=== PATIENT | female | born 1965 | race Caucasian/White ===

== ENCOUNTER 2018-09-24 10:17 | Emergency (ER) | payer SELFPAY ==
--- NOTE | 2018-09-24 11:03 | ER ---
Nurse's Notes [facility] Name: Carmel Grove Age: 53 yrs Sex: Female : 1965 Arrival Date: 09/24/2018 Time: 10:19 Bed 14 Private MD: Diagnosis: Person with feared health complaint in whom no diagnosis is made Presentation: 09/24 10:38 Presenting complaint: Patient states: felt a bug crawl into her left ear last night, iw can still feel it there. Transition of care: patient was not received from another setting of care. Onset of symptoms was September 24, 2018. Risk Assessment: Do you want to hurt yourself or someone else? Patient reports no desire to harm self or others. Initial Sepsis Screen: Does the patient meet any 2 criteria? No. Patient's initial sepsis screen is negative. Does the patient have a suspected source of infection? No. Patient's initial sepsis screen is negative. Care prior to arrival: None. 10:38 Method Of Arrival: Ambulatory iw 10:38 Acuity: NICHOLE 4 iw Historical: - Allergies: 10:44 No Known Allergies; iw - PMHx: 10:44 Anxiety; Depression; Edema to BLE; epilepsy; Hyperlipidemia; PTSD; iw - PSHx: 10:44 Appendectomy; iw - Immunization history:: Adult Immunizations not up to date. - Social history:: Smoking status: Patient uses tobacco products, smokes one-half pack cigarettes per day. - Ebola Screening: : Patient negative for fever greater than or equal to 101.5 degrees Fahrenheit, and additional compatible Ebola Virus Disease symptoms Patient denies exposure to infectious person Patient denies travel to an Ebola-affected area in the 21 days before illness onset No symptoms or risks identified at this time. Screenin:45 Abuse screen: Denies threats or abuse. Nutritional screening: No deficits noted. aa5 Tuberculosis screening: No symptoms or risk factors identified. Fall Risk None identified. Assessment: 10:45 General: Appears comfortable, Behavior is calm, cooperative. Pain: Denies pain. Neuro: aa5 Level of Consciousness is awake, alert, obeys commands, Oriented to person, place, time, situation. Cardiovascular: Patient's skin is warm and dry. Respiratory: Airway is patent Respiratory effort is even, unlabored, Respiratory pattern is regular, symmetrical. GI: No signs and/or symptoms were reported involving the gastrointestinal system. : No signs and/or symptoms were reported regarding the genitourinary system. EENT: Reports insect to left ear . Derm: Skin is pink, warm \T\ dry. Musculoskeletal: Range of motion: intact in all extremities. 11:02 Reassessment: Patient is alert, oriented x 3, equal unlabored respirations, skin aa5 warm/dry/pink. Vital Signs: 10:42 BP 117 / 76; Pulse 78; Resp 16 S; Temp 98.2; Pulse Ox 95% on R/A; Weight 69.4 kg; iw Height 5 ft. 1 in. (154.94 cm); Pain 0/10; 10:42 Body Mass Index 28.91 (69.40 kg, 154.94 cm) ED Course: 10:19 Patient arrived in ED. mr 10:31 Hernan Aceves PA is PHCP. [facility] 10:32 Calvin Hou MD is Attending Physician. [facility] 10:42 Triage completed. iw 10:42 Arm band placed on. iw 10:44 Sylwia Renner, RN is Primary Nurse. aa5 10:45 Patient has correct armband on for positive identification. Bed in low position. Call aa5 light in reach. Side rails up X 1. Adult w/ patient. 10:54 No provider procedures requiring assistance completed. Patient did not have IV access aa5 during this emergency room visit. Administered Medications: No medications were administered Outcome: 11:02 Discharge ordered by . [facility] 11:02 Patient left the ED. 11:02 Medical screen evaluation completed per provider. Patient declined treatment. aa5 11:02 Condition: stable 11:02 Discharge instructions given to patient, Instructed on discharge instructions, follow up and referral plans. Demonstrated understanding of instructions, follow-up care. Signatures: Hernan Aceves PA PA jmm Rivera, Mary Daniella Villar RN RN Sylwia Renner, RN RN aa5 Corrections: (The following items were deleted from the chart) 11:16 10:40 No provider procedures requiring assistance completed. aa5 aa5 11:16 10:40 Patient did not have IV access during this emergency room visit. aa5 aa5
--- NOTE | 2018-09-24 11:03 | EDPHYS ---
Physician Documentation [facility] Name: Carmel Grove Age: 53 yrs Sex: Female : 1965 Arrival Date: 09/24/2018 Time: 10:19 Bed 14 Private MD: ED Physician Calvin Hou HPI: 09/24 10:55 This 53 yrs old Female presents to ER via Ambulatory with complaints of jmm Foreign Body In Ear. 10:55 The patient presents with a foreign body sensation, presumably from an insect. Onset: jmm The symptoms/episode began/occurred gradually. This is a 53 year old female that presents to the ED with complaints of a foreign body sensation. Patient states an insect crawled in her left ear at 0100 today. Patient denies fever, cough, congestion. . Historical: - Allergies: 10:44 No Known Allergies; iw - PMHx: 10:44 Anxiety; Depression; Edema to BLE; epilepsy; Hyperlipidemia; PTSD; iw - PSHx: 10:44 Appendectomy; iw - Immunization history:: Adult Immunizations not up to date. - Social history:: Smoking status: Patient uses tobacco products, smokes one-half pack cigarettes per day. - Ebola Screening: : Patient negative for fever greater than or equal to 101.5 degrees Fahrenheit, and additional compatible Ebola Virus Disease symptoms Patient denies exposure to infectious person Patient denies travel to an Ebola-affected area in the 21 days before illness onset No symptoms or risks identified at this time. ROS: 10:55 Constitutional: Negative for fever, chills, and weight loss. jmm 10:55 ENT: Positive for ear pain. 11:14 All other systems are negative. jm Exam: 11:14 Constitutional: This is a well developed, well nourished patient who is awake, alert, jmm and in no acute distress. Head/Face: atraumatic. Eyes: EOMI, no conjunctival erythema appreciated 11:14 Neck: Trachea midline, Supple Chest/axilla: Normal chest wall appearance and motion. Cardiovascular: Regular rate and rhythm. No edema appreciated Respiratory: Normal respirations, no respiratory distress appreciated Abdomen/GI: Non distended, soft Back: Normal ROM Skin: General appearance color normal MS/ Extremity: Moves all extremities, no obvious deformities appreciated, no edema noted to the lower extremities Neuro: Awake and alert, normal gait Psych: Behavior is normal, Mood is normal, Patient is cooperative and pleasant 11:14 ENT: TM's: erythema, that is mild, on the left. Vital Signs: 10:42 BP 117 / 76; Pulse 78; Resp 16 S; Temp 98.2; Pulse Ox 95% on R/A; Weight 69.4 kg; iw Height 5 ft. 1 in. (154.94 cm); Pain 0/10; 10:42 Body Mass Index 28.91 (69.40 kg, 154.94 cm) iw MDM: 10:47 Patient medically screened. [facility] 11:15 Data reviewed: vital signs, nurses notes. Counseling: I had a detailed discussion with rosas the patient and/or guardian regarding: the historical points, exam findings, and any diagnostic results supporting the discharge/admit diagnosis, the need for outpatient follow up, to return to the emergency department if symptoms worsen or persist or if there are any questions or concerns that arise at home. ED course: NO FB visualized in the left tm. . Administered Medications: No medications were administered Disposition: 10:49 Otalgia. [facility] 11:27 Co-signature as Attending Physician, Calvin Hou MD I agree with the assessment and kdr plan of care. Disposition: 09/24/18 11:02 Discharged to Home as Medical Screen. Impression: Person with feared health complaint in whom no diagnosis is made. - Condition is Stable. - Follow up: Private Physician; When: 2 - 3 days; Reason: Recheck today's complaints, Continuance of care, Re-evaluation by your physician. Signatures: Calvin Hou MD MD [facility] Henran Aceves PA PA [facility] Daniella Villar, RN RN iw Corrections: (The following items were deleted from the chart) 11:02 11:02 09/24/2018 11:02 Discharged to Home as Medical Screen. Impression: Person with iw feared health complaint in whom no diagnosis is made. Condition is Stable. Forms are Medication Reconciliation Form, Thank You Letter, Antibiotic Education, Prescription Opioid Use. Follow up: Private Physician; When: 2 - 3 days; Reason: Recheck today's complaints, Continuance of care, Re-evaluation by your physician. [facility]
[2018-09-24 11:11] VITALS: BP 117/76; TEMP 98.2; O2SAT 95
--- OUTSIDE RECORDS SUMMARY | 2018-09-24 14:41 | XMS REPORT ---
:1965 Author Organization [facility] Address [address] [place] [address] Dr. Frias [address] [place] [id number] Care Team Providers Name Role Phone Unavailable Unavailable Unavailable Problems This patient has no known problems. Allergies, Adverse Reactions, Alerts This patient has no known allergies or adverse reactions. Medications This patient has no known medications.
== END 2018-09-24 11:02 | disposition home or self-care (01) ==
LOC: ER 10:17
DX: Z71.1 Person with feared health complaint in whom no diagnosis is made (principal)
CPT/HCPCS: 99281

== ENCOUNTER 2019-03-14 11:34 | Emergency (ER) | payer SELFPAY ==
--- OUTSIDE RECORDS SUMMARY | 2019-03-14 11:37 | XMS REPORT | Summary of Care ---
:1965 Author Organization [facility] - Health Address [address] [place] [address] Care Team Providers Name Role Phone Bre Richard Raina MENEZES Primary Care Provider Encounter Details Date Type Department Care Team Description 11/23/2018 Orders Only [facility] Doctor Unassigned, No [address] [facility] [place] [address] [address] [place] [address] Allergies Active Allergy Reactions Severity Noted Date Comments No Known Allergies 03/16/2005 documented as of this encounter (statuses as of 11/23/2018) Medications Medication Sig Dispensed Refills Start Date End Date Status divalproex ER Take 2 Tabs by 120 Tab 10 08/05/2013 Active (DEPAKOTE ER) 250 mg mouth every 24 hr tablet morning and evening. SERTraline (ZOLOFT) Take 1 Tab by 30 Tab 10 08/05/2013 Active 100 mg tablet mouth daily. risperidone Take 1 mg by mouth 0 Active (RISPERDAL ORAL) every morning. azithromycin 250 mg Take 1 tablet by 6 tablet 0 05/22/2018 Active tabletIndications: mouth Atypical pneumonia SEE-INSTRUCTIONS. Take 500 mg day 1, then 250 mg days 2 to 5. benzonatate 100 mg Take 1 capsule by 20 capsule 0 05/22/2018 Active capsuleIndications: mouth 3 (three) Atypical pneumonia times daily as needed for Cough. divalproex 500 mg EC Take 3 tablets by 0 Active tablet mouth every morning traZODONE 100 mg Take 100 mg by 0 Active tablet mouth at bedtime. albuterol 90 Inhale 2 Puffs 8.5 g 2 11/05/2018 Active mcg/actuation every 6 (six) inhalerIndications: hours as needed Simple chronic for Wheezing or bronchitis Shortness of Breath. furosemide (LASIX) 20 Take 1 tablet by 30 tablet 5 11/05/2018 Active mg tabletIndications: mouth daily. 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 Never 11/05/2018 How many drinks containing alcohol do you have on a typical Not asked day when you are drinking? How often do you have six or more drinks on one occasion? Not asked Sex Assigned at Date Recorded Not on file Job Start Date Occupation Industry Not on file Not on file Not on file Travel History Travel Start Travel End No recent travel history available. documented as of this encounter Last Filed Vital Signs Not on filedocumented in this encounter Plan of Treatment Health Maintenance Due Date Last Done Comments PNEUMOCOCCAL 0-64 YEARS COMBINED SERIES (1 of 3 - 07/05/1969 PCV13) DTaP,Tdap,and Td Vaccines (1 - Tdap) 07/05/1982 PAP SMEAR 07/05/1984 COLONOSCOPY 07/05/2013 Zoster Recombinant Vaccine (SHINGRIX) (1 of 2) 07/05/2013 MAMMOGRAM 05/26/2014 05/26/2013 LUNG CANCER SCREEN: Recommended for age 55-80 with 30 07/05/2018 + pack year history INFLUENZA VACCINE 12/27/2018 HEPATITIS C (HCV) SCREEN Completed 08/02/2013 documented as of this encounter Procedures Procedure Name Priority Date/Time Associated Diagnosis Comments EXTERNAL PROVIDER Routine 11/23/2018 12:01 AM CDT RECORDS documented in this encounter Results Not on filedocumented in this encounter Insurance Payer Benefit Plan / Subscriber ID Effective Phone Address Type Group Dates CR HANKINS [id number] 2018-[place] [phone] [facility] [place] [address] documented as of this encounter
--- OUTSIDE RECORDS SUMMARY | 2019-03-14 11:37 | XMS REPORT | Summary of Care ---
:1965 Author Organization [facility] Address [address] [place] [address] Care Team Providers Name Role Phone Bre Richard Primary Care Provider Reason for Visit Reason Comments Rx Concern/Question Encounter Details Date Type Department Care Team Description 11/24/2018 Telephone [facility] Bre Richard FNP Rx Concern/Question [address] [address] [place] [address] Allergies Active Allergy Reactions Severity Noted Date Comments No Known Allergies 03/16/2005 documented as of this encounter (statuses as of 11/24/2018) Medications Medication Sig Dispensed Refills Start Date [...] as of this encounter (statuses as of 11/24/2018) Active Problems Problem Noted Date 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, single episode, 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 Overview: MDD recurrent ICD10 Diagnosis Term 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 Posttraumatic stress disorder 03/16/2005 Convulsions 03/16/2005 Overview: ICD10 Diagnosis Term 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
--- OUTSIDE RECORDS SUMMARY | 2019-03-14 11:38 | XMS REPORT | Summary of Care ---
:1965 Author Organization [facility] - Health Address [address] [place] [address] Care Team Providers Name Role Phone Bre Richard Raina MENEZES Primary Care Provider Encounter Details Date Type Department Care Team Description 12/08/2018 Orders Only [facility] Doctor Unassigned, No [address] [facility] [place] [address] [address] [place] [address] Allergies Active Allergy Reactions Severity Noted Date Comments No Known Allergies 03/16/2005 documented as of this encounter (statuses as of 12/08/2018) Medications Medication Sig Dispensed Refills Start Date [...] as of this encounter (statuses as of 12/08/2018) Active Problems Problem Noted Date 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, single episode, 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 Overview: MDD recurrent ICD10 Diagnosis Term 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 Posttraumatic stress disorder 03/16/2005 Convulsions 03/16/2005 Overview: ICD10 Diagnosis Term 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 Seizures PTSD (post-traumatic stress disorder) Peripheral edema Depression Bipolar disorder with depression Anxiety documented as of this encounter (statuses as of 12/08/2018) Social History Tobacco Use Types Packs/Day Years [...] Procedure Name Priority Date/Time Associated Diagnosis Comments CONSENT/REFUSAL FOR Routine 12/08/2018 8:40 AM CDT DIAGNOSIS AND TREATMENT documented in this encounter Results Not on filedocumented in this encounter Insurance Payer Benefit Plan / Subscriber ID Effective Phone Address Type Group Dates CR [place]ANKINS [id number] 2018-[place] [phone] [facility]IMARY [facility]ARE PRIMARY CARE [address] [place] [address] documented as of this encounter
--- OUTSIDE RECORDS SUMMARY | 2019-03-14 11:38 | XMS REPORT | Summary of Care ---
:1965 Author Organization [facility] Address [address] [place] [address] Care Team Providers Name Role Phone Pcp, Patient Does Not Have A Primary Care Provider Reason for Referral Radiology Services (Routine) Status Reason Specialty Diagnoses / Referred By Referred To Procedures Contact Contact New Request Diagnostic Diagnoses Edema of both legs Shin Cummins, Radiology Procedures XR CHEST 1 VW DO [address] [place] [address] [place] [address] Radiology Services (Routine) Status Reason Specialty Diagnoses / Referred By Referred To Procedures Contact Contact New Request Diagnostic Diagnoses Edema of both legs Shin Cummins, Radiology Procedures XR CHEST 1 VW DO [address] [place] [address] [place] [id number] Reason for Visit Reason Comments Other bilateral swelling in both legs Auth/Cert Status Reason Specialty Diagnoses / Referred By Referred To Procedures Contact Contact [facility] [address] [place] [address] [place] [address] Encounter Details Date Type Department Care Team Description 12/08/2018 Emergency [facility] Shin Cummins DO Edema of both legs Department [address] [place] [address] (Primary Dx) [address] [place] [address] [place] [phone] [place] [phone] Allergies Active Allergy Reactions Severity Noted Date [...] 03/16/2005 Overview: MDD recurrent ICD10 Diagnosis Term Audit Mgr Utility Posttraumatic stress disorder 03/16/2005 Convulsions 03/16/2005 Overview: ICD10 Diagnosis Term Audit Mgr Utility Seizures PTSD (post-traumatic stress disorder) Peripheral [...] of this encounter Last Filed Vital Signs Vital Sign Reading Time Taken Comments Blood Pressure 118/74 12/08/2018 11:00 AM CDT Pulse 56 12/08/2018 11:00 AM CDT Temperature 36.7 C (98 F) 12/08/2018 8:46 AM CDT Respiratory Rate 18 12/08/2018 11:00 AM CDT Oxygen Saturation 96% 12/08/2018 11:00 AM CDT Inhaled Oxygen Concentration - - Weight 68 kg (150 lb) 12/08/2018 8:46 AM CDT Height - - Body Mass Index 25.75 11/05/2018 10:28 AM CDT documented in this encounter Discharge Instructions Shin Amor DO - 12/08/2018 INCREASE YOUR LASIX DOSE TO TWICE A DAY FOR 3 DAYS. DIAGNOSIS Diagnoses that have been ruled out: None Diagnoses that are still under consideration: None Final diagnoses: Edema of both legs NO LIFE-THREATENING FINDINGS ON TODAY'S EXAM. PROCEDURES IN THE ER TODAY: Orders Placed This Encounter Procedures XR CHEST 1 VW CBC WITH DIFF COMP. METABOLIC PANEL (75921) N-TERMINAL PRO-BNP TROPONIN I URINALYSIS CBC WITH DIFFERENTIAL MEDICATIONS ADMINISTERED IN THE ER TODAY AND DISCHARGE MEDICATIONS: Orders Placed This Encounter Medications bumetanide (BUMEX) injection 1.25 mg FOLLOW-UP RECOMMENDATIONS: RECOMMEND FOLLOW-UP WITH A PRIMARY CARE PROVIDER OR SPECIALIST IN 2-5 DAYS, ESPECIALLY IF NO IMPROVEMENT IN SYMPTOMS. MAY FOLLOW-UP WITH A PROVIDER OF YOUR CHOICE, SUCH : 1. A PHYSICIAN OF YOUR CHOICE 2. [facility] AND [facility], . LOCATIONS IN [facility] 3. [facility], [address] [place] [address]; OR, IF YOU WISH TO FOLLOW-UP WITHIN THE [facility], MAY TRY THESE OPTIONS (CLINIC APPOINTMENTS AVAILABLE ON [id number] BASIS): 1. SCHEDULE AN APPOINTMENT ONLINE AT [facility] 2. OR CALL THE [facility] ACCESS C[facility] AT OR 3. OR CALL YOUR [facility] PHYSICIAN'S OFFICE DIRECTLY IF YOU ARE ALREADY AN ESTABLISHED [facility] PATIENT. RETURN TO ER FOR WORSENING OF SYMPTOMS. AttachmentsThe following attachments cannot be sent through Care Everywhere.Leg Swelling in Both Legs (Portuguese)documented in this encounter Plan of Treatment Health [...] encounter Procedures Procedure Name Priority Date/Time Associated Comments Diagnosis XR CHEST 1 VW Routine 12/08/2018 10:02 Edema of both legs Results for this AM CDT procedure are in the results section. CBC WITH DIFFERENTIAL STAT 12/08/2018 9:45 Edema of both legs Results for this AM CDT procedure are in the results section. N-TERMINAL PRO-BNP STAT 12/08/2018 9:45 Edema of both legs Results for this AM CDT procedure are in the results section. URINALYSIS STAT 12/08/2018 9:45 Edema of both legs Results for this AM CDT procedure are in the results section. CBC WITH DIFF Routine 12/08/2018 9:45 Edema of both legs Results for this AM CDT procedure are in the results section. COMP. METABOLIC PANEL STAT 12/08/2018 9:45 Edema of both legs Results for this (19655) AM CDT procedure are in the results section. TROPONIN I STAT 12/08/2018 9:45 Edema of both legs Results for this AM CDT procedure are in the results section. documented in this encounter Results XR CHEST 1 VW (12/08/2018 10:02 AM CDT) Specimen Narrative Performed At * * * * * * * * ORIGINAL REPORT * * * * * * * * PACS/VR/DOSE EXAM: XR CHEST 1 VW HISTORY: shortness of breath COMPARISON: None. FINDINGS: The lungs may be minimally congested, but that is equivocal. They are mostly well expanded and clear. The heart and great vessels are normal. Procedure Note [facility], Radiant Results Inft User - 12/08/2018 10:14 AM CDT * * * * * * * * ORIGINAL REPORT * * * * * * * * EXAM: XR CHEST 1 VW HISTORY: shortness of breath COMPARISON: None. FINDINGS: The lungs may be minimally congested, but that is equivocal. They are mostly well expanded and clear. The heart and great vessels are normal. Performing Organization Address City/State/Zipcode Phone Number PACS/VR/DOSE CBC WITH DIFFERENTIAL (12/08/2018 9:45 AM CDT) WBC 8.19 4.30 - 11.10 [facility] 10*3/L [facility] RBC 4.21 3.93 - 5.25 [facility] 10*6/L [facility] HGB 12.9 11.6 - 15.0 g/dL [facility] HCT 38.0 35.7 - 45.2 % [facility] MCV 90.3 80.6 - 95.5 fL [facility] MCH 30.6 25.9 - 32.8 pg [facility] MCHC 33.9 31.6 - 35.1 g/dL [facility] RDW-SD 47.9 39.0 - 49.9 fL [facility] RDW-CV 14.6 12.0 - 15.5 % [facility] PLT 213 166 - 358 [facility] 10*3/L [facility] MPV 11.2 9.5 - 12.9 fL [facility] NRBC/100 WBC 0.0 0.0 - 10.0 /100 [facility] WBCs [facility] NRBC x10^3 <0.01 10*3/L [facility] GRAN MAT (NEUT) % 57.1 % [facility] IMM GRAN % 0.40 % [facility] LYMPH % 30.5 % [facility] MONO % 9.0 % [facility] EOS % 2.1 % [facility] BASO % 0.9 % [facility] GRAN MAT x10^3(ANC) 4.68 1.88 - 7.09 [facility] 10*3/uL H[facility]ITAL [facility] IMM GRAN x10^3 0.03 0.00 - 0.06 [facility] 10*3/uL [facility] LYMPH x10^3 2.50 1.32 - 3.29 [facility] 10*3/uL [facility] MONO x10^3 0.74 0.33 - 0.92 [facility] 10*3/uL [facility] EOS x10^3 0.17 0.03 - 0.39 [facility] 10*3/uL [facility] BASO x10^3 0.07 0.01 - 0.07 [facility] 10*3/uL [facility] Specimen Blood - VENOUS Performing Organization Address [facility] Phone Number [facility] CLIA: [id number], [address] [place] [address] URINALYSIS (12/08/2018 9:45 AM CDT) APPEARANCE Clear Clear [facility] COLOR Yellow Yellow [facility] PH 6.5 4.8 - 8.0 [facility] SP GRAVITY <=1.005 1.003 - 1.030 [facility] GLU U QUAL Negative Negative [facility] BLOOD Negative Negative [facility] KETONES Negative Negative [facility] PROTEIN Negative Negative [facility] UROBILIN 0.2 mg/dL 0-1.0 mg/dL [facility] BILIRUBIN Negative Negative [facility] NITRITE Negative Negative [facility] LEUK GERARDO Negative Negative [facility] RBC/HPF 1 0 - 3 HPF [facility] WBC/HPF 1 0 - 5 HPF [facility] BACTERIA Negative Negative [facility] SQ EPITH 1 HPF [facility] TRICHOMONA 1 <=1 HPF [facility] Specimen Urine - URINE, CLEAN CATCH Performing Organization Address [facility] Cent[facility]ode Phone Number [facility] CLIA: [id number], [address] [place] [address] TROPONIN I (12/08/2018 9:45 AM CDT) TROPONIN I <0.012 <=0.034 ng/mL [facility] Specimen Blood - VENOUS Narrative Performed At Equal or Less than 0.034 ng/ml---Normal [facility] Note: Cardiac troponin begins to rise 3-4 hours after the onset of ischemia. Repeat in 4-6 hours if the sample was drawn within 3-4 hours of the onset of the symptom and found normal. Between 0.035 and 0.120 ng/mL--- Borderline. Questionable myocardial injury or necrosis Note: Serial measurement may be necessary to confirm or exclude the diagnosis of myocardial injury or necrosis; Clinical correlation (symptoms, EKGs, imaging studies, and others) required; Repeat in 4-6 hours if clinically indicated. Equal or Higher than 0.121 ng/mL---Abnormal. Myocardial Injury or Necrosis Likely Biotin has been reported to cause a negative bias, interpret results relative to patient's use of biotin. Performing Organization Address [facility] Center[facility]n Phone Number [facility] CLIA: [id number], [address] [place] [address] N-TERMINAL PRO-BNP (12/08/2018 9:45 AM CDT) NT-proBNP 264 (H) <=125 pg/mL [facility] Specimen Blood - VENOUS Narrative Performed At Biotin has been reported to cause a negative [facility] bias, interpret results relative to patient's use of biotin. Performing Organization Address [facility] Center[facility]n Phone Number [facility] CLIA: [id number], [address] [place] [address] COMP. METABOLIC PANEL (47440) (12/08/2018 9:45 AM CDT) NA 138 135 - 145 mmol/L [facility] K 3.9 3.5 - 5.0 mmol/L [facility] CL 103 98 - 108 mmol/L [facility] CO2 TOTAL 25 23 - 31 mmol/L [facility] AGAP 10 2 - 16 [facility] BUN 4 (L) 7 - 23 mg/dL [facility] GLUCOSE 83 70 - 110 mg/dL [facility] CREATININE 0.55 0.50 - 1.04 [place] mg/dL HOSPITAL [facility] TOTAL BILI 0.4 0.1 - 1.1 mg/dL [facility] CALCIUM 8.9 8.6 - 10.6 mg/dL [facility] T PROTEIN 6.5 6.3 - 8.2 g/dL [facility] ALBUMIN 4.0 3.5 - 5.0 g/dL [facility] ALK PHOS 62 34 - 122 U/L [facility] ALT(SGPT) 12 9 - 51 U/L [facility] AST(SGOT) 16 13 - 40 U/L [facility] eGFR Calculation 114.8 mL/min/1.73m2 [facility] (Non-) [facility] eGFR Calculation 139.1 mL/min/1.73m2 [facility] () [facility] Specimen Blood - VENOUS Narrative Performed At Association of Glomerular Filtration Rate (GFR) [facility] and Staging of Kidney Disease* + + +- + | GFR (mL/min/1.73 m2)| With Kidney Damage|Without Kidney Damage + + +- + |>90| Stage one| Normal + + +- + |60-89|S tage two| Decreased GFR + + +- + |30-59|S tage three| Stage three + + +- + |15-29|S tage four | Stage four + + +- + |<15 (or dialysis)|Stage five | Stage five + + +- + *Each stage assumes the associated GFR level has been in effect for at least three months.Stages 1 to 5, with or without kidney disease, indicate chronic kidney disease. Notes: Determination of stages one and two (with eGFR >59mL/min/1.73 m2) requires estimation of kidney damage for at least three months as defined by structural or functional abnormalities of the kidney, manifested by either: Pathological abnormalities or Markers of kidney damage (including abnormalities in the composition of the blood or urine or abnormalities in imaging tests). Performing Organization Address City/State/Zipcode Phone Number [facility] CLIA: [id number], [address] [place] [address] [address] [employer] [address] documented in this encounter Visit Diagnoses Diagnosis Edema of both legs - Primary Edema documented in this encounter Administered Medications Medication Order MAR Action Action Date Dose Rate Site bumetanide (BUMEX) injection Given 12/08/2018 9:57 AM CDT 1.25 mg 1.25 mg 1.25 mg, Slow IV Push, Q24H, First dose on Fri12/08/18 at 1030, Until Discontinued, Routine documented in this encounter Insurance Payer Benefit Plan Subscriber ID Effective Phone Address Type / Group Dates CR CO. I [place] [id number] [address] [place] [address] I [facility] ent [address] [place] [address] GENERAL (Home) DELIVERY [phone] [place], ([place]) [place] [address] documented as of this encounter"
--- OUTSIDE RECORDS SUMMARY | 2019-03-14 11:39 | XMS REPORT ---
:1965 Author Organization [facility] Address [address] [place] [address] Dr. Frias [address] [place] [address] Care Team Providers Name Role Phone Unavailable Unavailable Unavailable Problems This patient has no known problems. Allergies, Adverse Reactions, Alerts This patient has no known allergies or adverse reactions. Medications This patient has no known medications.
--- OUTSIDE RECORDS SUMMARY | 2019-03-14 11:39 | XMS REPORT | Summary of Care ---
:1965 Author Organization [facility] Address [address] [place] [address] Care Team Providers Name Role Phone Pcp, Patient Does Not Have A Primary Care Provider Reason for Visit Reason Comments New Patient COLONOSCOPY (Routine) Status Reason Specialty Diagnoses / Procedures Referred By Referred To Contact Contact New Request Gastroenterology Diagnoses Family history of colon cancer requiring screening colonoscopy Bre Richard, Procedures CONSULT/REFERRAL GASTROENTEROLOGY CLINICAL STAFF PHARMACIST [address] [place] [address] Encounter Details Date Type Department Care Team Description 12/23/2018 Office Visit [facility] Yee Moreno Colon cancer screening ( Primary Dx); GASTROENTEROLOGY -GAVIN Enriquez Family history of colon cancer [address] [place] [phone] Allergies Active Allergy Reactions Severity Noted Date Comments No Known Allergies 03/16/2005 documented as of this encounter (statuses as of 12/23/2018) Medications Medication Sig Dispensed Refills Start Date End Date Status SERTraline Take 1 Tab by 30 Tab 10 08/05/2013 Active (ZOLOFT) 100 mg mouth daily. tablet risperidone Take 1 mg by 0 Active (RISPERDAL ORAL) mouth every morning. divalproex 500 mg Take 3 tablets 0 Active EC tablet by mouth every morning traZODONE 100 mg Take 100 mg by 0 Active tablet mouth at bedtime. albuterol 90 Inhale 2 Puffs 8.5 g 2 11/05/2018 Active mcg/actuation every 6 (six) inhalerIndications hours as needed : Simple chronic for Wheezing or bronchitis Shortness of Breath. furosemide 40 mg Take 1 tablet by 30 tablet 1 12/08/2018 Active tablet mouth daily. KCL 20 mEq Take 1 tablet by 30 tablet 1 12/08/2018 Active tabletIndications: mouth daily. Leg edema, Venous insufficiency peg-electrolyte Take as directed 4000 mL 0 12/23/2018 Active soln before [id number] colonoscopy -5.86 gram solutionIndication s: Colon cancer screening, Family history of colon cancer divalproex ER Take 2 Tabs by 120 Tab 10 08/05/2013 Discontinued (DEPAKOTE ER) 250 mouth every 9 mg 24 hr tablet morning and evening. azithromycin 250 Take 1 tablet by 6 tablet 0 05/22/2018 Discontinued mg mouth 9 tabletIndications: SEE-INSTRUCTIONS Atypical pneumonia . Take 500 mg day 1, then 250 mg days 2 to 5. benzonatate 100 mg Take 1 capsule 20 capsule 0 05/22/2018 Discontinued capsuleIndications by mouth 3 9 : Atypical (three) times pneumonia daily as needed for Cough. 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, single episode, 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 Overview: MDD recurrent ICD10 Diagnosis Term Associate Manager Affiliate Marketing Utility Posttraumatic stress disorder 03/16/2005 Convulsions 03/16/2005 Overview: ICD10 Diagnosis Term Associate Manager [employer]ili[employer] Marketing Utility Seizures PTSD (post-traumatic stress disorder) Peripheral edema Depression Bipolar disorder with depression Anxiety documented as of this encounter (statuses as of 12/23/2018) Social History Tobacco Use Types Packs/Day Years [...] Sign Reading Time Taken Comments Blood Pressure 123/81 12/23/2018 8:06 AM CDT Pulse 73 12/23/2018 8:06 AM CDT Temperature 36.1 C (97 F) 12/23/2018 8:06 AM CDT Respiratory Rate 16 12/23/2018 8:06 AM CDT Oxygen Saturation 96% 12/23/2018 8:06 AM CDT Inhaled Oxygen Concentration - - Weight 65.8 kg (145 lb 1.6 oz) 12/23/2018 8:06 AM CDT Height 154.9 cm (5' 1") 12/23/2018 8:06 AM CDT Body Mass Index 27.42 12/23/2018 8:06 AM CDT documented in this encounter Progress Yee Hobbs PA - 12/23/2018 8:00 AM CDT GI Clinic Note Date: 12/23/2018 08:25 Chief Complaint: CCS History of Present Illness: [place] is a 53 year old female with PHx of parotid cancer, anxiety, depression, bipolar disorder presents in the clinic for evaluation for CCS. She has rare intermittent rectal bleeding. No change in bowel habits No alarm features Family history of colon cancer in father dxd age late 60s-early 70s, and maternal grandfather dxd atunknown age. Never had a colonoscopy before H/o appendectomy Past Medical History: Past Medical History: Diagnosis Date Anxiety Bipolar disorder with depression Cancer of parotid gland 2013 Depression Peripheral edema Primary cancer of parotid gland 2013 PTSD (post-traumatic stress disorder) Seizures Past Surgical History: She has a past surgical history that includes parotidectomy (08/02/2013) and appendectomy (2000). Social History: Her reports that she has been smoking cigarettes. She has a 17.50 pack-year smoking history. She has never used smokeless tobacco. She reports that she drank alcohol. She reports thatshe does not use drugs., , Family History: She family history includes Cancer in her father; Coronary Heart Disease in her mother; Diabetes in her sister. Family history of colon cancer in father dxd age late 60s-early 70s, and maternal grandfather dxd at unknown age. Allergies: is allergic to none [no known allergies]. Medications: Scheduled Medications: Current Outpatient Medications Medication Sig Dispense Refill furosemide 40 mg tablet Take 1 tablet by mouth daily. 30 tablet 1 KCL 20 mEq tablet Take 1 tablet by mouth daily. 30 tablet 1 albuterol 90 mcg/actuation inhaler Inhale 2 Puffs every 6 (six) hours as needed for Wheezing or Shortness of Breath. 8.5 g 2 divalproex 500 mg EC tablet Take 3 tablets by mouth every morning risperidone (RISPERDAL ORAL) Take 1 mg by mouth every morning. SERTraline (ZOLOFT) 100 mg tablet Take 1 Tab by mouth daily. 30 Tab 10 traZODONE 100 mg tablet Take 100 mg by mouth at bedtime. No current facility-administered medications for this visit. Review of Systems: General: No recent fever or chills, no recent weight loss nor weight gain HEENT: No visual disturbances, hearing loss, tinnitus, nor vertigo CVS: No chest pain, palpitations, orthopnea, nor PND Resp: No dyspnea, asthma, chronic cough, nor hemoptysis GI: SEE HPI : No dysuria, hematuria, nor nocturia Musculoskeletal: No joint swelling, joint pain, cramping nor weakness Derm: No rash, suspicious skin lesions, skin cancer nor skin ulcers Neuro: No seizures, nor stroke Endo: No diabetes nor thyroid disease Heme: No abnormal bruising or bleeding Allergy: No urticaria, allergic rash, nor recurrent infections Psych: No depression, anxiety, nor mood swings Physical Exam: Temp: [36.1 C (97 F)] Pulse: [73] Resp: [16] BP: (123)/(81) @LASTSAO2(3)@ General: Alert, awake, calm, in no acute respiratory distress Skin: no vascular spiders, no jaundice, no vitiligo, no rash, no excoriations Head: normocephalic, atraumatic, no wasting of temporalis or masseter musculature Mouth/Throat: no bleeding from mucous membranes, no oropharyngeal ulcers Neck: supple, midline trachea, no thyromegaly, no jugular venous distension, no carotid bruits Lymph Nodes: no palpable cervical, supraclavicular, axillary, or inguinal lymphadenopathy Chest: no spinal or renal angle tenderness, no chest wall abnormality, no kyphosis or scoliosis Lungs: clear to percussion and auscultation Heart: regular rate and rhythm, normal S1 and S2, no murmur, gallop or rub Abdomen: soft, nondistended, nontender, no palpable liver or spleen, no ascites , no bruit, normal bowel sounds Musculoskeletal: no muscle tenderness or masses Extremities: no cyanosis, clubbing, edema, palmar rubor, or Dupuytren contracture Pulses: intact in upper extremities, intact in lower extremities Neurological: no asterixis or tremor Psychiatric: oriented to place, time, and person, normal affect. Labs: CBC WBC x10^3 (/uL) Date Value 07/02/2013 3.7 (L) WBC (10*3/L) Date Value 12/08/2018 8.19 RBC x10^6 (/uL) Date Value 07/02/2013 3.82 (L) RBC (10*6/L) Date Value 12/08/2018 4.21 PLT x10^3 (/uL) Date Value 07/02/2013 180 PLT (10*3/L) Date Value 12/08/2018 213 HGB Date Value 12/08/2018 12.9 g/dL 07/02/2013 11.4 G/DL (L) HCT (%) Date Value 12/08/2018 38.0 07/02/2013 34.9 (L) CMP NA Date Value 12/08/2018 138 mmol/L 04/17/2012 144 MMOL/L K Date Value 12/08/2018 3.9 mmol/L 04/17/2012 3.8 MMOL/L CALCIUM Date Value 12/08/2018 8.9 mg/dL 04/17/2012 9.1 MG/DL CL Date Value 12/08/2018 103 mmol/L 04/17/2012 101 MMOL/L BUN Date Value 12/08/2018 4 mg/dL (L) 04/17/2012 6 MG/DL (L) CREATININE Date Value 12/08/2018 0.55 mg/dL 04/17/2012 0.60 MG/DL GLUCOSE Date Value 12/08/2018 83 mg/dL 04/17/2012 145 MG/DL (H) CO2 TOTAL Date Value 12/08/2018 25 mmol/L 04/17/2012 30 MMOL/L ALBUMIN Date Value 12/08/2018 4.0 g/dL 03/15/2005 3.9 G/DL T PROTEIN Date Value 12/08/2018 6.5 g/dL 03/15/2005 7.0 G/DL TOTAL BILI Date Value 12/08/2018 0.4 mg/dL 03/15/2005 0.4 MG/DL BILI UNCON (mg/dL) Date Value 12/20/2017 0.3 BILI CONJ (mg/dL) Date Value 12/20/2017 0.0 ALT(SGPT) (U/L) Date Value 12/08/2018 12 03/15/2005 34 AST(SGOT) (U/L) Date Value 12/08/2018 16 03/15/2005 14 ALK PHOS (U/L) Date Value 12/08/2018 62 03/15/2005 124 (H) Assessment and Plan: 1. Colon cancer screening (primary encounter diagnosis) 2. Family history of colon cancer - Will order colonoscopy with Golytely as prep - Discussed risks and benefits of procedure - Consent form discussed and signed F/U PRN Signed: Yee Moreno PA-C Department of Internal Medicine - Gastroenterology and Hepatology documented in this encounter Plan of Treatment Date Type Specialty Care Team Description 12/24/2018 Appointment Radiology Bre Richard, CLINICAL STAFF PHARMACIST [address] [place], [place] [address] 12/24/2018 Laboratory Only Beam Carrier Hauler Pusher, Adc Cardio Fac 1, Adc Cardio Fac Room 12/24/2018 Appointment Vascular Sonography Cindy Willams MD [address] [place] [address] [place] [address] Tech, Adc Cardio Vascular 01/05/2019 Office Visit Cardiology Cindy Willams MD [address] [place] [address] [place] [address] 02/12/2019 Office Visit Pulmonary Disease Eunice Childers DO [address] [place] [address] Health Maintenance Due Date Last Done Comments PNEUMOCOCCAL 0-64 YEARS COMBINED SERIES (1 of 3 - 07/05/1969 PCV13) DTaP,Tdap,and Td Vaccines (1 - Tdap) 07/05/1982 PAP SMEAR 07/05/1984 COLONOSCOPY 07/05/2013 Zoster Recombinant Vaccine (SHINGRIX) (1 of 2) 07/05/2013 MAMMOGRAM 05/26/2014 05/26/2013 LUNG CANCER SCREEN: Recommended for age 55-80 with 30 07/05/2018 + pack year history INFLUENZA VACCINE (#1) 2018 HEPATITIS C (HCV) SCREEN Completed 08/02/2013 documented as of this encounter Results Not on filedocumented in this encounter Visit Diagnoses Diagnosis Colon cancer screening - Primary Special screening for malignant neoplasms, colon Family history of colon cancer Family history of malignant neoplasm of gastrointestinal tract documented in this encounter Insurance Payer Benefit Plan Subscriber ID Effective Phone Address Type / Group Dates [place] [place] [id number] [address] [place] [address] [address] [place], [place] [address] General (Home) Delivery [phone] [place] (Work) [place] [id number] documented as of this encounter
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
--- OUTSIDE RECORDS SUMMARY | 2019-03-14 11:39 | XMS REPORT | Summary of Care ---
:1965 Author Organization [facility] Address [address] [place] [address] Care Team Providers Name Role Phone Bre Richard LOCKSTITCH ZIPPER SETTER Primary Care Provider Pcp, Patient Does Not Have A Primary Care Provider Reason for Referral (Routine) Status Reason Specialty Diagnoses / Referred By Referred To Procedures Contact Contact New Request Pulmonary Disease Diagnoses Simple chronic bronchitis Bre Richard, Procedures CONSULT/REFERRAL PULMONARY LOCKSTITCH ZIPPER SETTER [address] [place] [address] (Routine) Status Reason Specialty Diagnoses / Referred By Referred To Procedures Contact Contact New Request Cardiology Diagnoses Peripheral edema Bre Richard, LOCKSTITCH ZIPPER SETTER Procedures CONSULT/REFERRAL CARDIOLOGY [address] [place] [address] (Routine) Status Reason Specialty Diagnoses / Procedures Referred By Referred To Contact Contact Authorized Gastroenterology Diagnoses Family history of colon cancer requiring screening colonoscopy Bre Richard, Procedures CONSULT/REFERRAL GASTROENTEROLOGY LOCKSTITCH ZIPPER SETTER [address] [place] [address] Radiology Services (Routine) Status Reason Specialty Diagnoses / Referred By Referred To Procedures Contact Contact New Request Diagnostic Diagnoses Encounter for mammogram to establish baseline mammogram Bre Richard, Radiology Procedures BI SCREENING MAMMOGRAM BILATERAL LOCKSTITCH ZIPPER SETTER [address] [place] [address] Reason for Visit Reason Comments Establish Care Encounter Details Date Type Department Care Team Description 11/05/2018 Office Visit [facility] Bre Draper, LOCKSTITCH ZIPPER SETTER [address] [place] [address] [phone] Encounter for medical examination to establish care ( Primary Dx); [facility] Major depressive disorder, single episode, severe; Clinic Epithelial-myoepithelial carcinoma of salivary gland; [address] Peripheral edema; [place], [place] Bipolar disorder with depression; [phone] Family history of colon cancer requiring screening colonoscopy; [phone] Encounter for mammogram to establish baseline mammogram; Simple chronic bronchitis Allergies Active Allergy Reactions Severity Noted Date Comments No Known Allergies 03/16/2005 documented as of this encounter (statuses as of 12/10/2018) Medications Medication Sig Dispensed Refills Start Date End Date Status divalproex ER Take 2 Tabs by 120 Tab 10 08/05/2013 Active (DEPAKOTE ER) 250 mouth every mg 24 hr tablet morning and evening. SERTraline Take 1 Tab by 30 Tab 10 08/05/2013 Active (ZOLOFT) 100 mg mouth daily. tablet risperidone Take 1 mg by 0 Active (RISPERDAL ORAL) mouth every morning. azithromycin 250 Take 1 tablet 6 tablet 0 05/22/2018 Active mg by mouth tabletIndications: SEE-INSTRUCTION Atypical pneumonia S. Take 500 mg day 1, then 250 mg days 2 to 5. benzonatate 100 mg Take 1 capsule 20 capsule 0 05/22/2018 Active capsuleIndications by mouth 3 : Atypical (three) times pneumonia daily as needed for Cough. divalproex 500 mg Take 3 tablets 0 Active EC tablet by mouth every morning traZODONE 100 mg Take 100 mg by 0 Active tablet mouth at bedtime. albuterol 90 Inhale 2 Puffs 8.5 g 2 11/05/2018 Active mcg/actuation every 6 (six) inhalerIndications hours as needed : Simple chronic for Wheezing or bronchitis Shortness of Breath. furosemide (LASIX Take by mouth. 0 Discontinued ORAL) 9 albuterol 90 Inhale 2 Puffs 8.5 g 0 05/22/2018 Discontinued mcg/actuation every 4 (four) 9 inhalerIndications hours as needed : Atypical for Wheezing or pneumonia Shortness of Breath. furosemide (LASIX) Take 1 tablet 30 tablet 5 11/05/2018 Discontinued 20 mg by mouth daily. 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, single episode, 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 Overview: MDD recurrent ICD10 Diagnosis Term Waiter/Waitress Take Out Utility Posttraumatic stress disorder 03/16/2005 Convulsions 03/16/2005 Overview: ICD10 Diagnosis Term Waiter/Waitress Take Out Utility Seizures PTSD (post-traumatic stress disorder) Peripheral edema Depression Bipolar disorder with depression Anxiety documented as of this encounter (statuses as of 12/10/2018) Social History Tobacco Use Types Packs/Day Years Used Date Current Every Day Smoker Cigarettes 0.5 35 Smokeless Tobacco: Never Used Tobacco Cessation: Ready to Quit: No; Counseling Given: Yes Alcohol Use Drinks/Week oz/Week Comments Not Currently [...] Sign Reading Time Taken Comments Blood Pressure 107/57 11/05/2018 10:28 AM CDT Pulse 70 11/05/2018 10:28 AM CDT Temperature - - Respiratory Rate 20 11/05/2018 10:28 AM CDT Oxygen Saturation - - Inhaled Oxygen Concentration - - Weight 67.4 kg (148 lb 8 oz) 11/05/2018 10:28 AM CDT Height 162.6 cm (5' 4") 11/05/2018 10:28 AM CDT Body Mass Index 25.49 11/05/2018 10:28 AM CDT documented in this encounter Progress Notes Bre Richard, CLIF - 11/05/2018 2:00 PM CDT Chief Complaint Patient presents with Establish Care [place] is a 53 year old female being seen in clinic to establish care with [facility]. Complains of chronic bronchitis and lower extremity edema. Bronchitis episodes are 4-5 times a yr for many years. Edema and been present for last 2 yrs. Responds well to diuretics. 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 Pt has adjuvant XRT for 6 wks. No chemotherapy. Has done well since. Has history of seizure disorder that is well controlled. Last seizure in 2012. Sees [facility] psych for bipolar disorder with depression/anxiety. Last Mammogram was in 2013. Father of metastatic colon cancer at age 74. She has never had a colonoscopy. The patient smokes 1/2 ppd for 45 yrs. Patient Active Problem List Diagnosis Major depressive disorder, single episode, severe Posttraumatic stress disorder Convulsions Epithelial-myoepithelial carcinoma of salivary gland Seizures PTSD (post-traumatic stress disorder) Peripheral edema Depression Bipolar disorder with depression Anxiety Primary cancer of parotid gland ROS: Constitutional: denies chills, sweats, fever, weakness or fatigue Eyes: denies blurred vision, change in or loss of vision, eye pain or redness Ears: denies pain or hearing impairment Nose/Sinuses: denies congestion or rhinorrhea Mouth/Throat: denies sore throat or mouth pain Neck: denies pain Cardiovascular: denies chest pain or palpitations Respiratory: (+) dyspnea, dyspnea on exertion, (+) wheezing Breast: no complaints Gastrointestinal: denies nausea/vomiting/diarrhea/constipation, denies abdominal pain Genitourinary: no dysuria or hematuria Musculoskeletal: denies muscle or bone pain or functional loss Skin: denies rash or itching Neuro: denies change in sensation, any neurologic loss or change in strength Psych: (+) psychiatric issues Endocrine: denies unusual weight loss/gain, heat/cold sensitivity, polyuria or polydipsia Heme/Lymph: denies swollen glands or bruising Current Outpatient Medications on File Prior to Visit Medication Sig Dispense Refill divalproex 500 mg EC tablet Take 3 tablets by mouth every morning traZODONE 100 mg tablet Take 100 mg by mouth at bedtime. risperidone (RISPERDAL ORAL) Take 1 mg by mouth every morning. SERTraline (ZOLOFT) 100 mg tablet Take 1 Tab by mouth daily. 30 Tab 10 albuterol 90 mcg/actuation inhaler Inhale 2 Puffs every 4 (four) hours as needed for Wheezing orShortness of Breath. 8.5 g 0 azithromycin 250 mg tablet Take 1 tablet by mouth SEE-INSTRUCTIONS. Take 500 mg day 1, then 250 mg days 2 to 5. 6 tablet 0 benzonatate 100 mg capsule Take 1 capsule by mouth 3 (three) times daily as needed for Cough. 20capsule 0 furosemide (LASIX ORAL) Take by mouth. divalproex ER (DEPAKOTE ER) 250 mg 24 hr tablet Take 2 Tabs by mouth every morning and evening. 120 Tab 10 No current facility-administered medications on file prior to visit. Allergies Allergen Reactions None [No Known Allergies] Past Surgical History: Procedure Laterality Date APPENDECTOMY 2000 PAROTIDECTOMY 08/02/2013 Surgeon: Esther Treviño MD; Location: [facility] Family History Problem Relation Age of Onset Coronary Heart Disease Mother Cancer Father Diabetes Sister Social History Socioeconomic History Marital status: Spouse [...] file Gets together: Not on file Attends quaker service: Not on file Active member of [...] family violence History of bipolar disorder. 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 Skin: skin color, texture, and turgor are normal Head: normocephalic, atraumatic Eyes: anicteric sclera, pupils are equally round and reactive to light, extraocular movements are intact. Ears: external ears normal, canals clear, tympanic membranes normal. Nose: nares normal, septum midline, mucosa normal. Oropharynx: normal, clear without erythema or exudate. Neck: neck supple, no adenopathy Chest: symmetric, no deformities Lungs: lungs clear to auscultation bilaterally. no wheezing, rales or rhonchi. Heart: regular rate and rhythm, no murmurs Abdomen: abdomen soft, non-tender, nondistended, normal active bowel sounds, no masses or organomegaly. Back: nontender, symmetrical Musculoskeletal: strength intact, no atrophy appreciated Neuro: CN 2 - 12 grossly intact Extremities: no cyanosis, no edema. Assessment and Plan: 1. Encounter to establish care - Labs drawn: CBC, CMP, TSH, FREE T4, A1C, VIT D, LIPID, HIV, HCV 2. Primary cancer of parotid gland 3. Major depressive disorder, single episode, severe 4. Peripheral edema - furosemide (LASIX) 20 mg tablet; Take 1 tablet by mouth daily. Dispense: 30 tablet; Refill: 5 5. Bipolar disorder with depression Continue with [facility] Psych 6. Family history of colon cancer requiring screening colonoscopy - CONSULT/REFERRAL GASTROENTEROLOGY 7. Encounter for mammogram to establish baseline mammogram - BI SCREENING MAMMOGRAM BILATERAL; Future 8. Simple chronic bronchitis - albuterol 90 mcg/actuation inhaler; Inhale 2 Puffs every 6 (six) hours as needed for Wheezing or Shortness of Breath. Dispense: 8.5 g; Refill: 2 Appropriate plan of ca re, desired health behaviors, goals and medications discussed with patient and educational resources and self-management tools provided, as applicable. Patient/family/guardian voice understanding. Barriers to adherence: none Ability to manage care: Good As necessary, prescribed medications and potential significant medication side effects or medicationinteractions were discussed with the patient and pt will let me know if any occur. Call or return to clinic prn if these symptoms worsen or fail to improve as anticipated. Call or report to ER if symptoms should symptoms progress or worsen. The patient indicates understanding of these issues and agrees with the plan. Bre [facility] Paris Regalado LVN - 11/05/2018 2:00 PM Clint Ulises Grvoe is a 53 year old female Patient here today for establish care. Reports 0 pain on scale 0/10, MD notified. Reviewed medications and allergies with patient today. Fall Risk Assessment/Screening performed with patient today andpatient is not at risk for falls. Lab work drawn per provider orders. Needle stick x (3) attempts.. Tolerated well. Minimal bruising noted to left forearm. Pressure bandage and ice pack applied. Voice no complaint of discomfort to site. documented in this encounter Plan of Treatment Date Type Specialty Care Team Description 12/23/2018 Office Visit Gastroenterology Yee Moreno PA [address] [place] [address] [phone] 12/24/2018 Laboratory Only Inspector Paper Products, Adc Cardio Fac 1, Adc Cardio Fac Room 12/24/2018 Appointment Vascular Sonography Cindy Willams MD [address] [place] [address] [place] [id number] Margarito Askew Cardio Vascular 01/05/2019 Office Visit Cardiology Cindy Willams MD [address] [place] [address] [place] [phone] Name Type Priority Associated Diagnoses Order Schedule BI SCREENING MAMMOGRAM IMAGING Routine Encounter for mammogram Expected: , BILATERAL to establish baseline Expires: 11/06/2019 mammogram Health Maintenance Due Date Last Done Comments [...] filedocumented in this encounter Visit Diagnoses Diagnosis Encounter for medical examination to establish care - Primary Major depressive disorder, single episode, severe Major depressive disorder, single episode, severe, without mention of psychotic behavior Epithelial-myoepithelial carcinoma of salivary gland Malignant neoplasm of salivary gland, unspecified Peripheral edema Edema Bipolar disorder with depression Bipolar I disorder, most recent episode (or current) depressed, unspecified Family history of colon cancer requiring screening colonoscopy Family history of malignant neoplasm of gastrointestinal tract Encounter for mammogram to establish baseline mammogram Other screening mammogram Simple chronic bronchitis documented in this encounter Insurance Payer Benefit Plan Subscriber ID Effective Phone Address Type / Group Dates CR HANKINS [id number] 2018-Presdylan [phone] [facility] PRIMARY CARE PRIMARY CARE [address] [place] [address] [place] [id number] 2018-[place] [address] H C I H C ent [address] [place] [address] GENERAL (Home) DELIVERY [phone] [place] ([place]) [place] [address] documented as of this encounter
--- OUTSIDE RECORDS SUMMARY | 2019-03-14 11:39 | XMS REPORT | Summary of Care ---
:1965 Author Organization [facility] Address [address] [place] [address] Care Team Providers Name Role Phone Pcp, Patient Does Not Have A Primary Care Provider Encounter Details Date Type Department Care Team Description 12/23/2018 Orders Only [facility] Doctor Unassigned, No [address] [facility] [place] [address] [address] [place] [address] Allergies Active Allergy Reactions Severity Noted Date [...] Active 100 mg tablet mouth daily. risperidone (RISPERDAL Take 1 mg by 0 Active ORAL) mouth every morning. azithromycin 250 mg [...] by 30 tablet 1 12/08/2018 Active tabletIndications: Leg mouth daily. 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, single episode, 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 Overview: MDD recurrent ICD10 Diagnosis Term Drying Tumbler Operator Utility Posttraumatic stress disorder 03/16/2005 Convulsions 03/16/2005 Overview: ICD10 Diagnosis Term Drying Tumbler Operator Utility Seizures PTSD (post-traumatic stress disorder) Peripheral [...] filedocumented in this encounter Plan of Treatment Date Type Specialty Care Team Description 12/23/2018 Office Visit Gastroenterology Yee Moreno PA [address] [place] [address] [phone] 12/24/2018 Appointment Radiology Bre Richard, PELOTA MAKER [address] [place], [place] [address] 12/24/2018 Laboratory Only Call Center Recruiter, Adc Cardio Fac 1, Adc Cardio Fac Room 12/24/2018 Appointment Vascular Sonography Cindy Willams MD [address] [place] [address] [address] [place], [place] [address] Margarito Askew Cardio Vascular 01/05/2019 Office Visit Cardiology Cindy Willams MD [address] [place] [address] [address] [place] [address] [phone] 02/12/2019 Office Visit Pulmonary Disease Childers Marlenyreta [address] [place] [address] Health Maintenance Due Date Last [...] Procedure Name Priority Date/Time Associated Diagnosis Comments NO SHOW OR MISSED Routine 12/23/2018 7:38 AM APPOINTMENT POLICY CDT ACKNOWLEDGEMENT documented in this encounter Results Not on filedocumented in this encounter Insurance Payer Benefit Plan Subscriber ID Effective Phone Address Type / Group Dates CR HANKINS [id number] [address]-[place] [address] PRIMARY CARE PRIMARY CARE nt [address] [place] [address] [place] [id number] 2018-02/28 [phone] [facility] H C I H C [address] [place] [address] [place]. [place] [id number] 2018-Prese [phone] [facility] H C I H C nt [address] [facility] [place] [place] [address] documented as of this encounter
--- OUTSIDE RECORDS SUMMARY | 2019-03-14 11:39 | XMS REPORT | Summary of Care ---
:1965 Author Organization [facility] Address [address] [place] [address] Care Team Providers Name Role Phone Pcp, Patient Does Not Have A Primary Care Provider Reason for Visit Reason Comments New Patient COLONOSCOPY (Routine) Status Reason Specialty Diagnoses / Procedures Referred By Referred To Contact Contact New Request Gastroenterology Diagnoses Family history of colon cancer requiring screening colonoscopy Bre Richard, Procedures CONSULT/REFERRAL GASTROENTEROLOGY HIGH SCHOOL PRINCIPAL [address] [place] [address] Encounter Details Date Type Department Care Team Description 12/23/2018 Office Visit [facility] Yee Moreno Colon cancer screening ( Primary Dx); GASTROENTEROLOGY -G[facility]IN Enriquez Family history of colon cancer [address] [place] [phone] Allergies Active Allergy Reactions Severity Noted Date [...] 03/16/2005 Overview: MDD recurrent ICD10 Diagnosis Term Business Communications Instructor Utility Posttraumatic stress disorder 03/16/2005 Convulsions 03/16/2005 Overview: ICD10 Diagnosis Term Business Communications Instructor Utility Seizures PTSD (post-traumatic stress disorder) Peripheral [...] cancer in father dxd age late 60s-early 70s. Never had a colonoscopy before H/o appendectomy [...] in her mother; Diabetes in her sister. Allergies: is allergic to none [no known [...] Team Description 12/24/2018 Appointment Radiology Bre Richard, HIGH SCHOOL PRINCIPAL [address] [place] [address] 12/24/2018 Laboratory Only Trim Machine Operator, Adc Cardio Fac 1, Adc Cardio Fac Room 12/24/2018 Appointment Vascular Sonography Cindy Willasm MD [address] [place] [address] [place] [phone] Tech, [facility] Cardio Vascular 01/05/2019 Office Visit Cardiology Cindy Willams MD [address] [place] [address] [place] [address] [phone] 02/12/2019 Office Visit Pulmonary Disease Eunice Childers DO [address] [place] [phone] Health Maintenance Due Date Last Done Comments [...] Group Dates [place] [id number] 2018[place] [address] C I H C ent [address] [place] [address] General (Home) Delivery [phone] [facility] [place] ([place]) [place] [address] documented as of this encounter
--- OUTSIDE RECORDS SUMMARY | 2019-03-14 11:40 | XMS REPORT | Summary of Care ---
:1965 Author Organization [facility] - [facility] Address [address] [place] [address] Care Team Providers Name Role Phone Pcp, Patient Does Not Have A Primary Care Provider Encounter Details Date Type Department Care Team Description 12/31/2018 Orders Only [facility] Doctor Unassigned, No 301 [facility] [place] [address] [address] [place] [address] Allergies Active Allergy Reactions Severity Noted Date Comments No Known Allergies 03/16/2005 documented as of this encounter (statuses as of 12/31/2018) Medications Medication Sig Dispensed Refills Start Date End Date Status SERTraline (ZOLOFT) Take 1 Tab by mouth 30 Tab 10 08/05/2013 Active 100 mg tablet daily. risperidone Take 1 mg by mouth 0 Active (RISPERDAL ORAL) every morning. divalproex 500 mg EC Take 3 tablets by 0 Active tablet mouth every morning traZODONE 100 mg Take 100 mg by 0 Active tablet mouth at bedtime. albuterol 90 Inhale 2 Puffs 8.5 g 2 11/05/2018 Active mcg/actuation every 6 (six) hours inhalerIndications: as needed for Simple chronic Wheezing or bronchitis Shortness of Breath. furosemide 40 mg Take 1 tablet by 30 tablet 1 12/08/2018 Active tablet mouth daily. KCL 20 mEq Take 1 tablet by 30 tablet 1 12/08/2018 Active tabletIndications: mouth daily. 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, single episode, 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 Overview: MDD recurrent ICD10 Diagnosis Term Heel Stainer Utility Posttraumatic stress disorder 03/16/2005 Convulsions 03/16/2005 Overview: ICD10 Diagnosis Term Heel Stainer Utility Seizures PTSD (post-traumatic stress disorder) Peripheral edema Depression Bipolar disorder with depression Anxiety documented as of this encounter (statuses as of 12/31/2018) Social History Tobacco Use Types Packs/Day Years [...] Treatment Date Type Specialty Care Team Description 12/31/2018 Appointment Radiology Bre Richard, ORNAMENTAL IRON WORKER [address] [place], [place] [id number] 01/05/2019 Office Visit Cardiology Cindy Willams MD [address] [place] [address] [place] [address] 02/08/2019 Hospital Encounter Surgery Clyde Coughlin, Colon cancer screening [address] [place] [address]. [address] [place], [place] 2467[address] 02/08/2019 Surgery Surgery Clyde Coughlin, COLONOSCOPY [address] [place] [address]. [address] [place] [address] [phone] 02/12/2019 Office Visit Pulmonary Disease ChildersEunice DO [address] [place] [address] Health Maintenance Due Date Last Done Comments [...] Procedure Name Priority Date/Time Associated Diagnosis Comments ASSIGNMENT OF BENEFITS Routine 12/31/2018 12:38 PM CDT documented in this encounter Results Not on filedocumented in this encounter Insurance Payer Benefit Plan Subscriber ID Effective Phone Address Type / Group Dates CR HANKINS [id number] 2018-[place] [phone] [facility] PRIMARY CARE PRIMARY CARE nt [address] [place] [address] CR CO. I CR COLeland [id number] 2018-[place] [address] H C I H C ent [address] [place] [address] documented as of this encounter
--- OUTSIDE RECORDS SUMMARY | 2019-03-14 11:40 | XMS REPORT | Summary of Care ---
:1965 Author Organization [facility] Address [address] [place] [address] Care Team Providers Name Role Phone Pcp, Patient Does Not Have A Primary Care Provider Reason for Referral (Routine) Status Reason Specialty Diagnoses / Procedures Referred By Referred To Contact Contact Closed Cardiology Diagnoses Leg edema Venous insufficiency Cindy Willams MD Procedures ECHO ROUTINE W/DOPPLER COLOR Preferred Location: [address] [place], [place] [address] Reason for Visit (Routine) Status Reason Specialty Diagnoses / Procedures Referred By Referred To Contact Contact Closed Cardiology Diagnoses Leg edema Venous insufficiency Cindy Willams MD Procedures ECHO ROUTINE W/DOPPLER COLOR Preferred Location: [address] [place] [address] Encounter Details Date Type Department Care Team Description 12/24/2018 Laboratory Only [facility] Cindy Willams MD [address] [place] [address] [place], [place] [address] Leg edema; Cardiology- 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, single episode, 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 Overview: MDD recurrent ICD10 Diagnosis Term Supervisor Refractory Products Utility Posttraumatic stress disorder 03/16/2005 Convulsions 03/16/2005 Overview: ICD10 Diagnosis Term Supervisor Refractory Products Utility Seizures PTSD (post-traumatic stress disorder) Peripheral edema Depression Bipolar disorder with depression Anxiety documented as of this encounter (statuses as of 12/24/2018) Social History Tobacco Use Types Packs/Day Years [...] Sign Reading Time Taken Comments Blood Pressure 113/72 12/24/2018 10:09 AM CDT Pulse 68 12/24/2018 10:09 AM CDT Temperature - - Respiratory Rate - - Oxygen Saturation - - Inhaled Oxygen Concentration - - Weight 65.8 kg (145 lb) 12/24/2018 10:09 AM CDT Height 154.9 cm (5' 1") 12/24/2018 10:09 AM CDT Body Mass Index 27.4 12/24/2018 10:09 AM CDT documented in this encounter Plan of Treatment Date Type Specialty Care Team Description 12/24/2018 Appointment Vascular Sonography Cindy Willams MD [address] [facility] [address] [place] [address] [phone] Tech, Margarito Cardio Vascular 01/05/2019 Office Visit Cardiology Cindy Willams MD [address] [place] [address] [phone] 02/12/2019 Office Visit Pulmonary Disease Eunice Childers DO [address] [place] [phone] Health Maintenance Due Date Last Done Comments [...] this encounter Visit Diagnoses Diagnosis Leg edema Edema Venous insufficiency Unspecified venous (peripheral) insufficiency documented in this encounter Insurance Payer Benefit Plan Subscriber ID Effective Phone Address Type / Group Dates [place] [place] [employer] [address] [place]. [id number] [address]-[place] [address] C [address] H C ent [address] [place] [address] General (Home) Delivery [phone] [place], ([place]) [place] [address] documented as of this encounter
--- OUTSIDE RECORDS SUMMARY | 2019-03-14 11:40 | XMS REPORT | Summary of Care ---
:1965 Author Organization [facility] - [facility] Address [address] [place] [address] Care Team Providers Name Role Phone Pcp, Patient Does Not Have A Primary Care Provider Encounter Details Date Type Department Care Team Description 12/17/2018 Orders Only [facility] Doctor Unassigned, No 301 [facility] [place] [address] [address] [place] [address] Allergies Active Allergy Reactions Severity Noted Date Comments No Known Allergies 03/16/2005 documented as of this encounter (statuses as of 12/30/2018) Medications Medication Sig Dispensed Refills Start Date End Date Status SERTraline (ZOLOFT) Take 1 Tab by 30 Tab 10 08/05/2013 Active 100 mg tablet mouth daily. risperidone (RISPERDAL Take 1 mg by mouth 0 Active ORAL) every morning. 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, single episode, 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 Overview: MDD recurrent ICD10 Diagnosis Term Air Director Utility Posttraumatic stress disorder 03/16/2005 Convulsions 03/16/2005 Overview: ICD10 Diagnosis Term Air Director Utility Seizures PTSD (post-traumatic stress disorder) Peripheral edema Depression Bipolar disorder with depression Anxiety documented as of this encounter (statuses as of 12/30/2018) Social History Tobacco Use Types Packs/Day Years [...] Team Description 12/31/2018 Appointment Radiology Bre Richard, [facility] [address] [place], [place] [address] 01/05/2019 Office Visit Cardiology Cindy Willams MD [address] [place] [address] [place] [address] 02/08/2019 Hospital Encounter Surgery Clyde Coughlin, Colon cancer screening [address] [place] [address]. [address] [place] [address] 02/08/2019 Surgery Surgery Clyde Coughlin, COLONOSCOPY [address] [place] [address]. [address] [place], [place] [address] 02/12/2019 Office Visit Pulmonary Disease Eunice Childers, [address] [place] [address] Health Maintenance Due Date Last Done Comments [...] Procedure Name Priority Date/Time Associated Diagnosis Comments MEDICATION CORRESPONDENCE Routine 12/17/2018 12:01 AM CDT documented in this encounter Results Not on filedocumented in this encounter Insurance Payer Benefit Plan Subscriber ID Effective Phone Address Type / Group Dates CR HANKINS [id number] 2018-Presdylan [phone] [facility] PRIMARY CARE PRIMARY CARE nt [address] [place] [address] CR CO. I CR COLeland [id number] 2018-[place] [address] H C I H C ent [address] [place] [address] documented as of this encounter
--- OUTSIDE RECORDS SUMMARY | 2019-03-14 11:40 | XMS REPORT | Summary of Care ---
:1965 Author Organization [facility] - [facility] Address [address] [place] [address] Care Team Providers Name Role Phone Pcp, Patient Does Not Have A Primary Care Provider Reason for Referral (Routine) Status Reason Specialty Diagnoses / Referred By Referred To Procedures Contact Contact Closed Vascular Diagnoses Venous insufficiency I87.2 (ICD-10-CM) - Venous insufficiency Imer, Qiangjun, Sonography Procedures BILATERAL VENOUS DUPLEX LOWER EXTREMITY BY VASCULAR LAB [id number] - BILATERAL VENOUS DUPLEX LOWER EXTREMITY BY VASCULAR LAB [address] [place] [address] (Routine) Status Reason Specialty Diagnoses / Referred By Referred To Procedures Contact Contact Closed Vascular Diagnoses Venous insufficiency I87.2 (ICD-10-CM) - Venous insufficiency Imer, Qiangjun, Sonography Procedures BILATERAL VENOUS DUPLEX LOWER EXTREMITY BY VASCULAR LAB [id number] - BILATERAL VENOUS DUPLEX LOWER EXTREMITY BY VASCULAR LAB [address] [place], [place] [address] Reason for Visit (Routine) Status Reason Specialty Diagnoses / Referred By Referred To Procedures Contact Contact Closed Vascular Diagnoses Venous insufficiency I87.2 (ICD-10-CM) - Venous insufficiency Imer, Qiangjun, Sonography Procedures BILATERAL VENOUS DUPLEX LOWER EXTREMITY BY VASCULAR LAB [id number] - BILATERAL VENOUS DUPLEX LOWER EXTREMITY BY VASCULAR LAB [address] [place] [address] Encounter Details Date Type Department Care Team Description 12/24/2018 Hospital Encounter [facility] Cindy Willams MD [address] [place] [address] Arrived [facility] Cardio Vascular [address] [facility] [place], [place] [phone] Allergies Active Allergy Reactions Severity Noted Date Comments No Known Allergies 03/16/2005 documented as of this encounter (statuses as of 12/25/2018) Medications Medication Sig Dispensed Refills Start Date [...] as of this encounter (statuses as of 12/25/2018) Active Problems Problem Noted Date Colon cancer screening 12/24/2018 Overview: Added automatically from request for surgery [id number] Family history of colon cancer 12/24/2018 Overview: Added automatically from request for surgery [id number] 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, single episode, 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 Overview: MDD recurrent ICD10 Diagnosis Term Comb Fixer Utility Posttraumatic stress disorder 03/16/2005 Convulsions 03/16/2005 Overview: ICD10 Diagnosis Term Comb Fixer Utility Seizures PTSD (post-traumatic stress disorder) Peripheral edema Depression Bipolar disorder with depression Anxiety documented as of this encounter (statuses as of 12/25/2018) Social History Tobacco Use Types Packs/Day Years [...] Treatment Date Type Specialty Care Team Description 01/05/2019 Office Visit Cardiology Cindy Willams MD [address] [place] [address] [address] [place] [address] [phone] 02/08/2019 Hospital Encounter Surgery Clyde Coughlin MD Colon cancer [address] [place], [place] [address]vd. [address] [place] [address] [phone] 02/08/2019 Surgery Surgery Clyde Coughlin MD COLONOSCOPY [address] [place] [address]. [address] [place] [address] [phone] 02/12/2019 Office Visit Pulmonary Disease Eunice Childers DO [address] [place] [phone] Health Maintenance Due Date Last Done Comments [...] Procedure Name Priority Date/Time Associated Diagnosis Comments BILATERAL VENOUS DUPLEX Routine 12/24/2018 12:08 PM CDT Venous insufficiency LOWER EXTREMITY BY VASCULAR LAB documented in this encounter Results Not on filedocumented in this encounter Visit Diagnoses Diagnosis Venous insufficiency Unspecified venous (peripheral) insufficiency documented in this encounter Insurance Payer Benefit Plan Subscriber ID Effective Phone Address Type / Group Dates [employer]. [id number] 2018-[facility] [place] [address] C [address] H ent [address] [place] [address] General (Home) Delivery [phone] [facility] [place] ([place]) [place] [address] documented as of this encounter
--- OUTSIDE RECORDS SUMMARY | 2019-03-14 11:40 | XMS REPORT | Summary of Care ---
:1965 Author Organization [facility] Address [address] [place] [address] Care Team Providers Name Role Phone Pcp, Patient Does Not Have A Primary Care Provider Reason for Visit Reason Comments New Patient COLONOSCOPY (Routine) Status Reason Specialty Diagnoses / Procedures Referred By Referred To Contact Contact New Request Gastroenterology Diagnoses Family history of colon cancer requiring screening colonoscopy Bre Richard, Procedures CONSULT/REFERRAL GASTROENTEROLOGY RN DOCUMENT IMPROVEMENT [address] [place] [address] Encounter Details Date Type Department Care Team Description 12/23/2018 Office Visit [facility] Yee Moreno Colon cancer screening ( Primary Dx); GASTROENTEROLOGY -GAVIN Enriquez Family history of colon cancer [address] [place] [phone] Allergies Active Allergy Reactions Severity Noted Date [...] 03/16/2005 Overview: MDD recurrent ICD10 Diagnosis Term Spooling Supervisor Utility Posttraumatic stress disorder 03/16/2005 Convulsions 03/16/2005 Overview: ICD10 Diagnosis Term Spooling Supervisor Utility Seizures PTSD (post-traumatic stress disorder) [...] CDT documented in this encounter Progress Notes Tawanna Eduardo RN - 12/23/2018 8:00 AM CDTColonoscopy ordered. endoscopy unit to notify patient with date. Verbal and printed Golytely prep instructions given. List of medications to avoid prior to procedure explained. Verbalized understanding. Facility location and telephone provided. Patient provided with "Anesthesia and me" pamphlet and copy of the anesthesia consent they will be asked to sign prior to the procedure for review. ([id number]) Monitored Anesthesia/Analgesia (MAC) or Moderate Sedation will be the planned method of sedation. Written consent has been obtained from patient by physician geriatric nurse assistant. Consent for procedure witnessed by Tawanna Lea RN Yee Liao PA - 12/23/2018 8:00 AM CDT GI [...] Team Description 12/24/2018 Appointment Radiology Bre Richard, RN DOCUMENT IMPROVEMENT [address] [place], [place] [address] 12/24/2018 Laboratory Only Flooring Machine Operator, Margarito Cardio Fac 1, Adc Cardio Fac Room 12/24/2018 Appointment Vascular Sonography Cindy Willams MD [address] [facility] [address] [place], [place] [address] Margarito Askew Cardio Vascular 01/05/2019 Office Visit Cardiology Cindy Willams MD 146 [facility] [address] [place] [address] [phone] 02/12/2019 Office Visit Pulmonary Disease Eunice Childers, [address] [place] [address] Health Maintenance Due Date Last [...] Group Dates [employer] [employer]. [place]. [id number] 2018-[place] [address] H C I H C ent [address] [place] [address] General (Home) Delivery [phone] [place], ([place]) [place] [address] documented as of this encounter
--- OUTSIDE RECORDS SUMMARY | 2019-03-14 11:40 | XMS REPORT | Summary of Care ---
:1965 Author Organization [facility] Address [address] [place] [address] Care Team Providers Name Role Phone Pcp, Patient Does Not Have A Primary Care Provider Reason for Referral Radiology Services (FRANSISCO) Status Reason Specialty Diagnoses / Referred By Referred To Procedures Contact Contact New Request Diagnostic Diagnoses Abnormal mammogram of right breast Bre Richard, Radiology Procedures BI DIAGNOSTIC MAMMOGRAM RIGHT CRTS [address] [place] [address] Reason for Visit Reason Comments Imaging right mammogram Encounter Details Date Type Department Care Team Description 12/31/2018 Telephone [facility] Bre Richard, CRTS Imaging (right [address] mammogram ) [address] [place] [phone] Allergies Active Allergy Reactions Severity Noted Date [...] Overview: Added automatically from request for surgery [id number] Family history of colon cancer 12/24/2018 Overview: Added automatically from request for surgery [id number] 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 [place] [address] [phone] 02/08/2019 Surgery Surgery Clyde Coughlin MD COLONOSCOPY 301 [facility]. [address] [place] [address] [phone] 02/12/2019 Office Visit Pulmonary Disease Eunice Childers, [address] [place] [address] Name Type Priority Associated Diagnoses Order Schedule BI DIAGNOSTIC MAMMOGRAM IMAGING FRANSISCO Abnormal mammogram of Expected: 2018, RIGHT right breast Expires: 03/02/2020 Health Maintenance Due Date Last Done Comments [...] filedocumented in this encounter Visit Diagnoses Diagnosis Abnormal mammogram of right breast - Primary documented in this encounter Insurance Payer Benefit Plan Subscriber ID Effective Phone Address Type / Group Dates CR HANKINS [id number] 2018-Presdylan [phone] [facility] PRIMARY CARE PRIMARY CARE nt [address] [place] [address] CR CO. Azul HANKINS COLeland [id number] 2018-[place] [address] H C I H C ent 20 [place] [address] documented as of this encounter
--- OUTSIDE RECORDS SUMMARY | 2019-03-14 11:41 | XMS REPORT | Summary of Care ---
:1965 Author Organization [facility] Address [address] [place] [address] Care Team Providers Name Role Phone Pcp, Patient Does Not Have A Primary Care Provider Reason for Referral Radiology Services (Routine) Status Reason Specialty Diagnoses / Referred By Referred To Procedures Contact Contact Authorized Diagnostic Diagnoses Encounter for mammogram to establish baseline mammogram Bre Richard, Radiology Procedures BI SCREENING MAMMOGRAM BILATERAL RIVERBOAT CAPTAIN [address] [place] [address] Radiology Services (Routine) Status Reason Specialty Diagnoses / Referred By Referred To Procedures Contact Contact Authorized Diagnostic Diagnoses Encounter for mammogram to establish baseline mammogram Bre Richard, Radiology Procedures BI SCREENING MAMMOGRAM BILATERAL RIVERBOAT CAPTAIN [address] [place] [address] Reason for Visit Radiology Services (Routine) Status Reason Specialty Diagnoses / Referred By Referred To Procedures Contact Contact Authorized Diagnostic Diagnoses Encounter for mammogram to establish baseline mammogram Bre Richard, Radiology Procedures BI SCREENING MAMMOGRAM BILATERAL RIVERBOAT CAPTAIN [address] [place] [address] Encounter Details Date Type Department Care Team Description 12/31/2018 Hospital Encounter [facility] Bre Richard, RIVERBOAT CAPTAIN Arrived [facility] [address] [place] [address] [place] [address] [place] [phone] Allergies Active Allergy Reactions Severity Noted Date Comments No Known Allergies 03/16/2005 documented as of this encounter (statuses as of 01/01/2019) Medications Medication Sig Dispensed Refills Start Date [...] as of this encounter (statuses as of 01/01/2019) Active Problems Problem Noted Date Colon cancer screening 12/24/2018 Overview: Added automatically from request for surgery [id number] Family history of colon cancer 12/24/2018 Overview: Added automatically from request for surgery [id number] 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, single episode, 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 Overview: MDD recurrent ICD10 Diagnosis Term Mapping Pilot Utility Posttraumatic stress disorder 03/16/2005 Convulsions 03/16/2005 Overview: ICD10 Diagnosis Term Mapping Pilot Utility Seizures PTSD (post-traumatic stress disorder) Peripheral edema Depression Bipolar disorder with depression Anxiety documented as of this encounter (statuses as of 01/01/2019) Social History Tobacco Use Types Packs/Day Years [...] 01/05/2019 Office Visit Cardiology Cindy Willams MD [address] [place] [address] [address] [place] [address] [phone] 02/08/2019 Hospital Encounter Surgery Clyde Coughlin MD Colon cancer [address] [place] [address]. [address] [place] [address] [phone] 02/08/2019 Surgery Surgery Clyde Coughlin MD COLONOSCOPY [address] [place] [address]. RT [address] [place] [address] [phone] 02/12/2019 Office Visit Pulmonary Disease Eunice Childers, [address] [place] [phone] Health Maintenance Due Date Last Done Comments PNEUMOCOCCAL 0-64 YEARS COMBINED SERIES (1 07/05/1969 of 3 - PCV13) DTaP,Tdap,and Td Vaccines (1 - Tdap) 07/05/1982 PAP SMEAR 07/05/1984 COLONOSCOPY 07/05/2013 Zoster Recombinant Vaccine (SHINGRIX) (1 07/05/2013 of 2) LUNG CANCER SCREEN: Recommended for age 0307/05/2018 55-80 with 30 + pack year history INFLUENZA VACCINE (#1) 2018 MAMMOGRAM 01/01/2020 12/31/2018, 05/26/2013 HEPATITIS C (HCV) SCREEN Completed 08/02/2013 documented as of this encounter Procedures Procedure Name Priority Date/Time Associated Diagnosis Comments BI SCREENING Routine 12/31/2018 2:04 PM Encounter for Results for this MAMMOGRAM BILATERAL CDT mammogram to procedure are in establish baseline the results mammogram section. documented in this encounter Results BI SCREENING MAMMOGRAM BILATERAL (12/31/2018 2:04 PM CDT) Specimen Narrative Performed At Examination: PACS BI SCREENING MAMMOGRAM BILATERAL History: Patient is 53 year old and is seen for:Screening mammogram.no history of abnormal.No relevant hormone history has been documented for this patient. No relevant surgical history has been documented for this patient. No relevant medical history has been documented for this patient. Computer-aided detection (CAD) utilized. Comparisons: 05/26/2013 DIGITAL MAMMOGRAM, SCREENING Findings: The breasts are heterogeneously dense, which may obscure small masses. Right There is a 7 mm equal density, oval mass with circumscribed margins seen in the upper outer quadrant of the right breast in the posterior depth, 4.7 cm from the nipple. Left There is no evidence of suspicious masses, calcifications, or other abnormal findings. Impression: Ultrasound study of upper outer RIGHT breast to rule out solid mass. Recommendation: Ultrasound - Right Annual mammographic follow-up - Left BI-RADS Category: Left: 2 - Benign Right: 0 - Incomplete: Needs Additional Imaging Evaluation Overall: 0 - Incomplete: Needs Additional Imaging Evaluation Performing Organization Address City/State/Zipcode Phone Number PACS documented in this encounter Visit Diagnoses Diagnosis Encounter for mammogram to establish baseline mammogram Other screening mammogram documented in this encounter Insurance Payer Benefit Plan Subscriber ID Effective Phone Address Type / Group Dates [place] [place] [employer] [place] [id number] [address] [address] C [address] H C ent [address] [place] [address] General (Home) Delivery [phone] [facility] (Work) [place] [address] documented as of this encounter
--- OUTSIDE RECORDS SUMMARY | 2019-03-14 11:41 | XMS REPORT | Summary of Care ---
:1965 Author Organization [facility] Address [address] [place] [address] Care Team Providers Name Role Phone Pcp, Patient Does Not Have A Primary Care Provider Reason for Referral Radiology Services (FRANSISCO) Status Reason Specialty Diagnoses / Referred By Referred To Procedures Contact Contact New Request Diagnostic Diagnoses Abnormal mammogram of right breast Bre Richard, Radiology Procedures BI DIAGNOSTIC MAMMOGRAM RIGHT CLINICAL DATA ASSOCIATE [address] [place] [address] Reason for Visit Reason Comments Imaging right mammogram Encounter Details Date Type Department Care Team Description 12/31/2018 Telephone [facility] Bre Richard, CLINICAL DATA ASSOCIATE Imaging (right [address] mammogram ) [address] [place] [address] [phone] Allergies Active Allergy Reactions Severity Noted Date [...] Overview: Added automatically from request for surgery [id number] Family history of colon cancer 12/24/2018 Overview: Added automatically from request for surgery [id number] 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 [address] [place] [address] [phone] 02/08/2019 Surgery Surgery Clyde Coughlin MD COLONOSCOPY 301 [facility]. RT [address] [place] [address] [phone] 02/12/2019 Office Visit Pulmonary Disease Alvarado Marlenyjazeleazar, DO [address] [place] [address] Name Type Priority Associated Diagnoses Order Schedule [...] Address Type / Group Dates CR [place]ANK[place] [id number] 2018-Prese [phone] [facility] PRIMARY CARE PRIMARY CARE nt 11 [facility] [place] [address] CR CO. I CR [place] [id number] 2018-Pres [phone] [facility] H C I H [place] [address] [place] [address] documented as of this encounter
--- OUTSIDE RECORDS SUMMARY | 2019-03-14 11:41 | XMS REPORT | Summary of Care ---
:1965 Author Organization [facility] Address [address] [place] [address] Care Team Providers Name Role Phone Pcp, Patient Does Not Have A Primary Care Provider Reason for Referral Radiology Services (FRANSISCO) Status Reason Specialty Diagnoses / Referred By Referred To Procedures Contact Contact New Request Diagnostic Diagnoses Abnormal mammogram of right breast Bre Richard, Radiology Procedures BI DIAGNOSTIC MAMMOGRAM RIGHT REVOLVING FIELD ASSEMBLER [address] [place] [address] Reason for Visit Reason Comments Imaging right mammogram Encounter Details Date Type Department Care Team Description 12/31/2018 Telephone [facility] Bre Richard, REVOLVING FIELD ASSEMBLER Imaging (right [address] mammogram ) [address] [place] [address] [phone] Allergies Active Allergy Reactions Severity Noted Date [...] Overview: Added automatically from request for surgery [id number] Family history of colon cancer 12/24/2018 Overview: Added automatically from request for surgery [id number] 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 [address] [place] [address] [phone] 02/08/2019 Surgery Surgery Clyde Coughlin MD COLONOSCOPY 301 [facility]. RT [address] [place] [address] [phone] 02/12/2019 Office Visit Pulmonary Disease Alvarado Marlenyjazeleazar, DO [address] [place] [address] Name Type Priority Associated Diagnoses Order Schedule [...] Address Type / Group Dates CR [place] [id number] 2018-Prese [phone] [facility] PRIMARY CARE PRIMARY CARE nt 11 [facility] [place] [address] CR CO. I CR [place] [id number] 2018-Pres [phone] [facility] H C I H C [place] [address] [place] [address] documented as of this encounter
--- OUTSIDE RECORDS SUMMARY | 2019-03-14 11:41 | XMS REPORT | Summary of Care ---
:1965 Author Organization [facility] Address [address] [place] [address] Care Team Providers Name Role Phone Pcp, Patient Does Not Have A Primary Care Provider Reason for Referral Radiology Services (FRANSISCO) Status Reason Specialty Diagnoses / Referred By Referred To Procedures Contact Contact New Request Diagnostic Diagnoses Abnormal mammogram of right breast Bre Richard, Radiology Procedures BI ULTRASOUND BREAST LIMITED RIGHT SYSTEM SUPPORT DEVELOPER [address] [place] [address] Radiology Services (FRANSISCO) Status Reason Specialty Diagnoses / Referred By Referred To Procedures Contact Contact New Request Diagnostic Diagnoses Abnormal mammogram of right breast Bre [place], Radiology Procedures BI DIAGNOSTIC MAMMOGRAM RIGHT SYSTEM SUPPORT DEVELOPER [address] [place] [address] Reason for Visit Reason Comments Imaging right mammogram Encounter Details Date Type Department Care Team Description 12/31/2018 Telephone Pending sale to [facility] Bre Richard, SYSTEM SUPPORT DEVELOPER Imaging (right [facility] 301 [facility] mammogram ) [address] [place] [phone] Allergies Active Allergy Reactions Severity Noted Date Comments No Known Allergies 03/16/2005 documented as of this encounter (statuses as of 01/04/2019) Medications Medication Sig Dispensed Refills Start Date [...] as of this encounter (statuses as of 01/04/2019) Active Problems Problem Noted Date Colon cancer screening 12/24/2018 Overview: Added automatically from request for surgery [id number] Family history of colon cancer 12/24/2018 Overview: Added automatically from request for surgery [id number] 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, single episode, 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 Overview: MDD recurrent ICD10 Diagnosis Term Beam Press Operator Utility Posttraumatic stress disorder 03/16/2005 Convulsions 03/16/2005 Overview: ICD10 Diagnosis Term Beam Press Operator Utility Seizures PTSD (post-traumatic stress disorder) Peripheral edema Depression Bipolar disorder with depression Anxiety documented as of this encounter (statuses as of 01/04/2019) Social History Tobacco Use Types Packs/Day Years [...] 01/05/2019 Office Visit Cardiology Cindy Willams MD [address] [place] [address] [address] [place] [address] [phone] 02/08/2019 Hospital Encounter Surgery Clyde Coughlin MD Colon cancer [address] [place] [address] [phone] 02/08/2019 Surgery Surgery Clyde Coughlin MD COLONOSCOPY 301 [facility] [address] [place] [address] [phone] 02/12/2019 Office Visit Pulmonary Disease Eunice Childers DO [facility] [place] [phone] Name Type Priority Associated Diagnoses Order Schedule BI DIAGNOSTIC MAMMOGRAM IMAGING FRANSISCO Abnormal mammogram of Expected: 2018, RIGHT right breast Expires: 03/02/2020 BI ULTRASOUND BREAST IMAGING FRANSISCO Abnormal mammogram of Expected: 2018, LIMITED RIGHT right breast Expires: 03/06/2020 Health Maintenance Due Date Last Done Comments [...] Address Type / Group Dates CR HANKINS [id number] 2018-Wilmar [phone] [facility] PRIMARY CARE PRIMARY CARE nt [address] [place] [address] CR [place] BOYD [id number] 2018-[place] [address] H C I H [place] [address] [place] [address] documented as of this encounter
--- OUTSIDE RECORDS SUMMARY | 2019-03-14 11:42 | XMS REPORT | Summary of Care ---
:1965 Author Organization [facility] Address [address] [place] [address] Care Team Providers Name Role Phone Pcp, Patient Does Not Have A Primary Care Provider Reason for Referral Radiology Services (FRANSISCO) Status Reason Specialty Diagnoses / Referred By Referred To Procedures Contact Contact Authorized Diagnostic Diagnoses Abnormal mammogram of right breast Bre Richard, Radiology Procedures BI ULTRASOUND BREAST LIMITED RIGHT LEAD PRINTER [address] [place] [address] Radiology Services (FRANSISCO) Status Reason Specialty Diagnoses / Referred By Referred To Procedures Contact Contact Authorized Diagnostic Diagnoses Abnormal mammogram of right breast Bre Richard, Radiology Procedures BI DIAGNOSTIC MAMMOGRAM RIGHT LEAD PRINTER [address] [place] [address] Reason for Visit Reason Comments Imaging right mammogram Encounter Details Date Type Department Care Team Description 12/31/2018 Telephone Critical [facility] hospital Bre Richard, LEAD PRINTER Imaging (right [facility] 301 [facility] mammogram ) [address] [place] [phone] Allergies Active Allergy Reactions Severity Noted Date Comments No Known Allergies 03/16/2005 documented as of this encounter (statuses as of 01/08/2019) Medications Medication Sig Dispensed Refills Start Date [...] for Wheezing or bronchitis Shortness of Breath. KCL 20 mEq Take 1 tablet by 30 tablet 1 12/08/2018 Active tabletIndications: mouth daily. Leg edema, Venous insufficiency peg-electrolyte Take as directed 4000 mL 0 12/23/2018 Active soln 236-22.74-6.74 before -5.86 gram colonoscopy solutionIndications : Colon cancer screening, Family history of colon cancer furosemide 40 mg Take 1 tablet by 30 tablet 1 12/08/2018 Discontinued tablet mouth daily. 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, single episode, 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 Overview: MDD recurrent ICD10 Diagnosis Term Through Freight Engineer Utility Posttraumatic stress disorder 03/16/2005 Convulsions 03/16/2005 Overview: ICD10 Diagnosis Term Through Freight Engineer Utility Seizures PTSD (post-traumatic stress disorder) Peripheral edema Depression Bipolar disorder with depression Anxiety documented as of this encounter (statuses as of 01/08/2019) Social History Tobacco Use Types Packs/Day Years [...] Treatment Date Type Specialty Care Team Description 01/12/2019 Appointment Radiology Bre Richard, LEAD PRINTER [address] [place] [address] [phone] 01/12/2019 Appointment Radiology Bre Richard, LEAD PRINTER [address] [place] [address] [phone] 02/08/2019 Hospital Encounter Surgery Clyde Coughlin, Colon cancer screening [address] [place] [address]. [address] [place] [address] [phone] 02/08/2019 Surgery Surgery Clyde Coughlin, COLONOSCOPY [address] [place] [address]. RT [address] [place], [place] 6804[address] 02/12/2019 Office Visit Pulmonary Disease Eunice Childers, DO [address] [place] [address] [phone] 04/06/2019 Office Visit Cardiology Cindy Willams MD [address] [place] [address] [place] [address] Name Type Priority Associated Diagnoses Order Schedule [...] Address Type / Group Dates CR [place] [id number] 2018-Prese [phone] [facility] PRIMARY CARE PRIMARY CARE nt 11 [place] [address] CR CO. I CR [place] [id number] 2018-[place] [address] H C I H C ent [address] [place] [address] documented as of this encounter
--- OUTSIDE RECORDS SUMMARY | 2019-03-14 11:42 | XMS REPORT | Summary of Care ---
:1965 Author Organization [facility] Address [address] [place] [address] Care Team Providers Name Role Phone Pcp, Patient Does Not Have A Primary Care Provider Reason for Visit Reason Comments Results Encounter Details Date Type Department Care Team Description 01/07/2019 Telephone [facility] Cardiology, Cnidy Willams MD Results [address] [place] [phone] Allergies Active Allergy Reactions Severity Noted Date Comments No Known Allergies 03/16/2005 documented as of this encounter (statuses as of 01/07/2019) Medications Medication Sig Dispensed Refills Start Date [...] as of this encounter (statuses as of 01/07/2019) Active Problems Problem Noted Date Colon cancer screening 12/24/2018 Overview: Added automatically from request for surgery [id number] Family history of colon cancer 12/24/2018 Overview: Added automatically from request for surgery [id number] 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, single episode, 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 Overview: MDD recurrent ICD10 Diagnosis Term Radiator Core Tester Utility Posttraumatic stress disorder 03/16/2005 Convulsions 03/16/2005 Overview: ICD10 Diagnosis Term Radiator Core Tester Utility Seizures PTSD (post-traumatic stress disorder) Peripheral edema Depression Bipolar disorder with depression Anxiety documented as of this encounter (statuses as of 01/07/2019) Social History Tobacco Use Types Packs/Day Years [...] Treatment Date Type Specialty Care Team Description 02/08/2019 Hospital Encounter Surgery Clyde Coughlin MD Colon cancer [address] [place], [place] [address]vd. RT [address] [place], [place] [address] 02/08/2019 Surgery Surgery Clyde Coughlin MD COLONOSCOPY [address] [place] [address]. RT [address] [place], [place] [address] 02/12/2019 Office Visit Pulmonary Disease Eunice Childers DO [address] [place] [address] 04/06/2019 Office Visit Cardiology Cindy Willams MD [address] [place] [address] [address] [place] [address] [phone] Health Maintenance Due Date Last Done Comments [...] Address Type / Group Dates CR HANKINS [id number] 2018-Prese [phone] [facility] PRIMARY CARE PRIMARY CARE nt [address] [place] [address] CR CO. I CR [place] [id number] 2018-[place] [address] H C I H C ent [address] [place] [address] documented as of this encounter
--- OUTSIDE RECORDS SUMMARY | 2019-03-14 11:42 | XMS REPORT | Summary of Care ---
:[address] [facility] Address [address] [place] [address] Care Team Providers Name Role Phone Pcp, Patient Does Not Have A Primary Care Provider Reason for Visit Reason Comments LAB WORK Encounter Details Date Type Department Care Team Description 01/05/2019 Griddle Attendant Visit [facility] Cindy Willams MD [address] [facility] [address] [place], [place] [address] Peripheral edema Phlebotomy 1, [facility] 132 [facility] [place] [phone] Allergies Active Allergy Reactions Severity Noted Date Comments No Known Allergies 03/16/2005 documented as of this encounter (statuses as of 01/05/2019) Medications Medication Sig Dispensed Refills Start Date [...] as of this encounter (statuses as of 01/05/2019) Active Problems Problem Noted Date Colon cancer screening 12/24/2018 Overview: Added automatically from request for surgery [id number] Family history of colon cancer 12/24/2018 Overview: Added automatically from request for surgery [id number] 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 RT 07[address] [place], [place] [address] 02/08/2019 Surgery Surgery Clyde Coughlin MD COLONOSCOPY [address] [place] [address]. RT [address] [place], [place] 9668[address] 02/12/2019 Office Visit Pulmonary Disease Eunice Childers, [facility] [place] [address] [phone] 04/06/2019 Office Visit Cardiology Cindy Willams MD [address] [place] [address] [address] [place] [address] [phone] Name Type Priority Associated Diagnoses Date/Time BASIC METABOLIC PANEL (NA, LAB Routine Peripheral edema 01/05/2019 11:30 AM CDT K, CL, CO2, GLUCOSE, BUN, CREATININE, CA) N-TERMINAL PRO-BNP LAB Routine Peripheral edema 01/05/2019 11:30 AM CDT Health Maintenance Due Date Last Done Comments [...] filedocumented in this encounter Visit Diagnoses Diagnosis Peripheral edema Edema documented in this encounter Insurance Payer Benefit Plan Subscriber ID Effective Phone Address Type / Group Dates [employer] [id number] 2018-[place] [address] C [address] H C ent [address] [facility] [place] [address] General (Home) Delivery [phone] [place] ([place]) [place] [address] documented as of this encounter
--- OUTSIDE RECORDS SUMMARY | 2019-03-14 11:42 | XMS REPORT | Summary of Care ---
:1965 Author Organization [facility] [employer] [facility] Address [address] [place] [address] Care Team Providers Name Role Phone Pcp, Patient Does Not Have A Primary Care Provider Reason for Visit Reason Comments Refill Request Encounter Details Date Type Department Care Team Description 01/07/2019 Refill [facility] Cardiology- Cindy Willams MD Refill Request [address] [facility], [address] [place] [address] [place] [phone] Allergies Active Allergy Reactions Severity Noted Date [...] Take 1 tablet by 30 tablet 1 01/07/2019 Active tablet mouth daily. furosemide 40 mg Take 1 tablet by 30 tablet 1 12/08/2018 Discontinued tablet mouth daily. 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 [address] [place] [address] [phone] 02/08/2019 Surgery Surgery Clyde Coughlin MD COLONOSCOPY [address] [place] [address]. [address] [place], [place] [address] 02/12/2019 Office Visit Pulmonary Disease Eunice Childers DO [address] [place] [phone] 04/06/2019 Office Visit Cardiology Cindy Willams MD [address] [facility] [address] [place] [address] [phone] Health Maintenance Due Date Last Done Comments [...] Address Type / Group Dates CR HANKINS [id number] [address] [place] [address] PRIMARY CARE PRIMARY CARE [address] [place] [address] CR CO. I CR [place] [id number] [address] [address] [facility] [address] [facility] ent [address] [place] [address] documented as of this encounter
--- OUTSIDE RECORDS SUMMARY | 2019-03-14 11:42 | XMS REPORT | Summary of Care ---
:1965 Author Organization [facility] Address [address] [place] [address] Care Team Providers Name Role Phone Pcp, Patient Does Not Have A Primary Care Provider Reason for Visit Reason Comments Follow-up SWELLING in the feet (Routine) Status Reason Specialty Diagnoses / Procedures Referred By Contact Referred To Contact Closed Cardiology Diagnoses Peripheral edema Bre Richard FNP Procedures CONSULT/REFERRAL CARDIOLOGY [address] [place] [address] Encounter Details Date Type Department Care Team Description 01/05/2019 Office Visit [facility] Cindy Willams MD (HFpEF) heart failure with preserved ejection fraction (Primary Dx); Cardiology- [address] Peripheral [address], [address] [place] [phone] Allergies Active Allergy Reactions Severity Noted Date [...] Overview: Added automatically from request for surgery [id number] Family history of colon cancer 12/24/2018 Overview: Added automatically from request for surgery [id number] 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, single episode, 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 Overview: MDD recurrent ICD10 Diagnosis Term Tank Car Loader Utility Posttraumatic stress disorder 03/16/2005 Convulsions 03/16/2005 Overview: ICD10 Diagnosis Term Tank Car Loader Utility Seizures PTSD (post-traumatic stress disorder) Peripheral [...] Sign Reading Time Taken Comments Blood Pressure 106/67 01/05/2019 10:46 AM CDT Pulse 65 01/05/2019 10:46 AM CDT Temperature - - Respiratory Rate 19 01/05/2019 10:46 AM CDT Oxygen Saturation 96% 01/05/2019 10:46 AM CDT Inhaled Oxygen Concentration - - Weight 65.8 kg (145 lb 1.6 oz) 01/05/2019 10:46 AM CDT Height 154.9 cm (5' 1") 01/05/2019 10:46 AM CDT Body Mass Index 27.42 01/05/2019 10:46 AM CDT documented in this encounter Progress Notes Cindy Willams MD - 01/05/2019 10:40 AM CDT CARDIOLOGY CLINIC NOTE 01/05/2019 Reason for Referral/Presenting Complaint: leg edema PCP: [...] BNP is elevated. CXR showed mild congestion. We increased lasix to 40 mg daily last visit. She lost 5 lbs. Still with leg edema. ECHO and venous Duplex unremarkable. Review of Systems: General: (-) fever, (-) [...] Current Outpatient Medications Medication Sig Dispense Refill peg-electrolyte soln [id number] -5.86 gram solution Take as directed before colonoscopy 4000mL 0 furosemide 40 mg tablet Take 1 tablet [...] file Gets together: Not on file Attends baptist service: Not on file Active member of [...] family violence History of bipolar disorder. 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 Normal EKG. ECHO--Normal LVEF Venous duplex--Normal Assessment/Plan: ICD-10-CM ICD-9-CM 1. (HFpEF) heart failure with preserved ejection fraction I50.30 428.9 2. Peripheral edema R60.9 782.3 Chronic leg edema with elevated BNP and mild pulmonary congestion. No SOB or orthopnea. Possible diastolic heart failure. Lost 5 lbs. Will get BMP and BNP to guide therapy. Will continue lasix at 40 mgdaily + KCL 20 mEq daily. Advised to try compression stockings. Low salt diet. Patient was counseled for lifestyle modifications including: diet, exercise, weight loss and smokingcessation. RTC 3 months Cindy Willams MD, FACC, RIVASE Operations Support Representative, Division of Cardiology [facility] ; Pager documented in this encounter Plan of Treatment Date Type Specialty Care Team Description 02/08/2019 Hospital Encounter Surgery Clyde Coughlin MD Colon cancer [address] [place] [address] [place] [address] [phone] 02/08/2019 Surgery Surgery Clyde Coughlin MD COLONOSCOPY [address] [place] [address] [phone] 02/12/2019 Office Visit Pulmonary Disease Childers MarlenyDO reta [address] [place] [address] [phone] 04/06/2019 Office Visit Cardiology Cindy Willams MD 146 [facility] [address] [place], [place] [address] Name Type Priority Associated Diagnoses Order Schedule BASIC METABOLIC PANEL LAB Routine Peripheral edema 1 Occurrences starting (NA, K, CL, CO2, 01/05/2019 until GLUCOSE, BUN, 04/07/2019 CREATININE, CA) N-TERMINAL PRO-BNP LAB Routine Peripheral edema 1 Occurrences starting 01/05/2019 until 03/07/2019 Health Maintenance Due Date Last Done Comments [...] filedocumented in this encounter Visit Diagnoses Diagnosis (HFpEF) heart failure with preserved ejection fraction - Primary Peripheral edema Edema documented in this encounter Insurance Payer Benefit Plan Subscriber ID Effective Phone Address Type / Group Dates [employer] [place] [id number] [address] [address] [address] [place] [address] General (Home) Delivery [phone] [facility] [place] ([place]) [place] [address] documented as of this encounter
--- OUTSIDE RECORDS SUMMARY | 2019-03-14 11:42 | XMS REPORT | Summary of Care ---
:1965 Author Organization [facility] Address [address] [place] [address] Care Team Providers Name Role Phone Pcp, Patient Does Not Have A Primary Care Provider Reason for Visit Reason Comments Follow-up SWELLING in the feet (Routine) Status Reason Specialty Diagnoses / Procedures Referred By Contact Referred To Contact Closed Cardiology Diagnoses Peripheral edema Bre Richard FNP Procedures CONSULT/REFERRAL CARDIOLOGY [address] [place] [address] Encounter Details Date Type Department Care Team Description 01/05/2019 Office Visit [facility] Cindy Willams MD (HFpEF) heart failure with preserved ejection fraction (Primary Dx); Cardiology- [address] Peripheral [address], [address] [place] [phone] Allergies Active Allergy Reactions Severity Noted Date [...] Overview: Added automatically from request for surgery [id number] Family history of colon cancer 12/24/2018 Overview: Added automatically from request for surgery [id number] 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 [place] [address] [phone] 02/08/2019 Surgery Surgery Clyde Coughlin MD COLONOSCOPY [address] [place] [address] [phone] 02/12/2019 Office Visit Pulmonary Disease Childers MarlenyDO reta [address] [place] [address] [phone] 04/06/2019 Office Visit Cardiology Cindy Willams MD [address] [facility] [address] [place], [place] [address] Name Type Priority Associated Diagnoses Order Schedule [...] Group Dates [employer] [place] [employer] [id number] [address] [place] [address] [address] C ent [address] [place] [address] General (Home) Delivery [phone] [facility] [place] (Work) [place] [address] documented as of this encounter
--- OUTSIDE RECORDS SUMMARY | 2019-03-14 11:43 | XMS REPORT | Summary of Care ---
:1965 Author Organization [facility] Address [address] [place] [address] Care Team Providers Name Role Phone Pcp, Patient Does Not Have A Primary Care Provider Reason for Referral (Routine) Status Reason Specialty Diagnoses / Referred By Referred To Procedures Contact Contact New Request Cardiology Diagnoses Peripheral edema (HFpEF) heart failure with preserved ejection fraction Bre Richard FNP Procedures CONSULT/REFERRAL CARDIOLOGY [address] [place] [address] Reason for Visit Reason Comments REFERRAL Cardiology Encounter Details Date Type Department Care Team Description 01/11/2019 Telephone [facility] Bre Richard FNP REFERRAL (Cardiology) [address] [phone] Allergies Active Allergy Reactions Severity Noted Date Comments No Known Allergies 03/16/2005 documented as of this encounter (statuses as of 01/11/2019) Medications Medication Sig Dispensed Refills Start Date [...] chronic Wheezing or bronchitis Shortness of Breath. KCL [...] tablet 1 01/07/2019 Active tablet mouth daily. 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 Posttraumatic stress disorder 03/16/2005 Convulsions 03/16/2005 Overview: ICD10 Diagnosis Term 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 Seizures PTSD (post-traumatic stress disorder) Peripheral edema Depression Bipolar disorder with depression Anxiety documented as of this encounter (statuses as of 01/11/2019) Social History Tobacco Use Types Packs/Day Years [...] Team Description 01/12/2019 Appointment Radiology Bre Richard, LEARNING SERVICES COORDINATOR [address] [place] [address] [phone] 01/12/2019 Appointment Radiology Bre Richard, LEARNING SERVICES COORDINATOR [address] [place], [place] [address] 02/08/2019 Hospital Encounter Surgery Clyde Coughlin, Colon cancer screening [address] [place] [address]. [address] [place] [address] [phone] 02/08/2019 Surgery Surgery Clyde Coughlin, COLONOSCOPY [address] [place] [address]. [address] [place] [address] [phone] 02/12/2019 Office Visit Pulmonary Disease Eunice Childers DO [address] [place] [phone] 04/06/2019 Office Visit Cardiology Cindy Willams MD [address] [place] [address] [place] [address] Health Maintenance Due Date Last Done [...] this encounter Visit Diagnoses Diagnosis Peripheral edema - Primary Edema (HFpEF) heart failure with preserved ejection fraction documented in this encounter Insurance Payer Benefit Plan Subscriber ID Effective Phone Address Type / Group Dates CR HANKINS [id number] 2018-Prese [phone] [facility] PRIMARY CARE PRIMARY CARE nt [address] [place] [address] CR CO. I CR BOYD [id number] [address] [address] C [address] H C ent [address] [place] [address] documented as of this encounter
[2019-03-14] MEDS ORDERED: KETOROLAC 30 MG/ML INJ ONE (12:22)
[2019-03-14] MEDS ORDERED: CYCLOBENZAPRINE 10 MG TAB ONE (12:22)
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
[2019-03-14 14:48] VITALS: TEMP 98; O2SAT 100
[2019-03-14 14:50] VITALS: BP 100/90
== END 2019-03-14 14:43 | disposition home or self-care (01) ==
LOC: ER 11:34
DX: S20.211A Contusion of right front wall of thorax, initial encounter (principal); R05 Cough; V19.9XXA Pedal cyclist (driver) (passenger) injured in unspecified traffic accident, initial encounter; Y93.9 Activity, unspecified; Y92.9 Unspecified place or not applicable
CPT/HCPCS: 71045; 96372; 99283

== ENCOUNTER 2019-04-25 11:28 | Emergency (ER) | payer SELFPAY ==
--- OUTSIDE RECORDS SUMMARY | 2019-04-25 11:32 | XMS REPORT ---
:1965 [facility] [address] [place] [address] Dr. Frias [address] [place] [id number] Care Team Providers Name Role Phone Unavailable Unavailable Unavailable Problems This patient has no known problems. Allergies, Adverse Reactions, Alerts This patient has no known allergies or adverse reactions. Medications This patient has no known medications.
[2019-04-25] MEDS ORDERED: AZITHROMYCIN 250 MG TAB ONE (12:01)
[2019-04-25] MEDS ORDERED: ALBUTEROL 2.5 MG/3 ML NEB SOL ONE (12:02)
[2019-04-25] MEDS ORDERED: FAMOTIDINE 20 MG TAB ONE (12:02)
[2019-04-25] MEDS ORDERED: predniSONE 20 MG TAB ONE (12:02)
--- NOTE | 2019-04-25 12:53 | RAD REPORT ---
EXAM DESCRIPTION: Lois Stanley (2 Views)04/25/2019 12:34 pm CLINICAL HISTORY: Cough COMPARISON: February 2019 FINDINGS: The lungs appear clear of acute infiltrate. The heart is normal size IMPRESSION: No acute abnormalities displayed
--- NOTE | 2019-04-25 12:58 | ER ---
Nurse's Notes [facility] Name: Carmel Grove Age: 53 yrs Sex: Female : 1965 Arrival Date: 04/25/2019 Time: 11:33 Bed 28 Private MD: Diagnosis: Acute bronchitis Presentation: 04/25 12:12 Presenting complaint: Patient states: cough x 1 week with green sputum. Transition of sr5 care: patient was not received from another setting of care. Onset of symptoms was April 18, 2019. Risk Assessment: Do you want to hurt yourself or someone else? Patient reports no desire to harm self or others. Initial Sepsis Screen: Does the patient meet any 2 criteria? HR > 90 bpm. Care prior to arrival: None. 12:12 Method Of Arrival: Ambulatory sr5 12:12 Acuity: NICHOLE 3 sr5 Triage Assessment: 12:14 General: Appears ill, Behavior is calm, cooperative. Pain: Complains of pain in chest sr5 Pain currently is 7 out of 10 on a pain scale. Neuro: Level of Consciousness is awake, alert, obeys commands, Oriented to person, place, time, situation. Cardiovascular: Patient's skin is warm and dry. Respiratory: Breath sounds are coarse bilaterally. GI: No signs and/or symptoms were reported involving the gastrointestinal system. : No signs and/or symptoms were reported regarding the genitourinary system. Derm: No signs and/or symptoms reported regarding the dermatologic system. Musculoskeletal: No signs and/or symptoms reported regarding the musculoskeletal system. 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 - Ebola Screening: : Patient negative for fever greater than or equal to 101.5 degrees Fahrenheit, and additional compatible Ebola Virus Disease symptoms. Screenin:25 Abuse screen: Denies threats or abuse. Nutritional screening: No deficits noted. sr5 Tuberculosis screening: No symptoms or risk factors identified. Fall Risk None identified. Assessment: 14:25 Reassessment: At discharge pt reports feeling better, "a little shaky from the sr5 breathing treatment", equal unlabored resp, nonproductive cough noted while in ER, skin warm/dry/nc, Motrin ordered and given for headache. Meal tray ordered. Vital Signs: 12:14 BP 127 / 71; Pulse 100; Resp 20; Temp 99.5; Pulse Ox 95% on R/A; Weight 65.32 kg (R); sr5 Height 5 ft. 1 in. (154.94 cm); Pain 7/10; 12:55 BP 127 / 71; Pulse 95; Resp 20; Pulse Ox 94% on R/A; sr5 13:07 BP 116 / 74; Pulse 96; Resp 20; Pulse Ox 98% on 10% Simple Mask; jp3 14:00 BP 124 / 71; Pulse 104; Resp 18; Pulse Ox 97% ; sr5 12:14 Body Mass Index 27.21 (65.32 kg, 154.94 cm) sr5 12:55 2nd albuterol started sr5 14:00 #3 albuterol neb in progress sr5 ED Course: 11:33 Patient arrived in ED. as 11:34 Suzette Garcia FNP-C is PHCP. snw 11:34 Ervin Pedroza MD is Attending Physician. snw 12:03 Flu and/or RSV swab sent to lab. Patient maintains SpO2 saturation greater than 95% on jp3 room air. 12:04 Flu Sent. jp3 12:04 Patient has correct armband on for positive identification. Bed in low position. Call jp3 light in reach. Side rails up X 1. Verbal reassurance given. Pulse ox on. NIBP on. 12:13 Triage completed. sr5 12:14 Arm band placed on. sr5 12:31 Chest Pa And Lat (2 Views) XRAY In Process Unspecified. EDMS 13:16 Jg Patel, RN is Primary Nurse. sr5 14:25 No provider procedures requiring assistance completed. Patient did not have IV access sr5 during this emergency room visit. Administered Medications: 12:11 Not Given (Patient Refused): predniSONE 60 mg PO once sr5 12:12 Drug: Pepcid 20 mg Route: PO; sr5 14:00 Follow up: Response: No adverse reaction sr5 14:25 Follow up: Response: No adverse reaction sr5 12:12 Drug: Zithromax 500 mg Route: PO; sr5 14:00 Follow up: Response: No adverse reaction sr5 14:24 Follow up: Response: No adverse reaction sr5 13:59 Drug: Albuterol 2.5 mg Route: Inhalation; sr5 14:00 Follow up: Response: Marked relief of symptoms sr5 14:25 Follow up: Response: Marked relief of symptoms sr5 13:59 Drug: Albuterol 2.5 mg Route: Inhalation; sr5 13:59 Drug: Albuterol 2.5 mg Route: Inhalation; sr5 14:24 Drug: Motrin 400 mg Route: PO; sr5 14:24 Follow up: Response: Medication administered at discharge. sr5 Outcome: 12:57 Discharge ordered by . toshia 14:25 Discharged to home ambulatory. sr5 14:25 Condition: good 14:25 Discharge instructions given to patient, Instructed on discharge instructions, follow up and referral plans. medication usage, Demonstrated understanding of instructions, follow-up care, medications, Prescriptions given X 3. 14:29 Patient left the ED. sr5 Signatures: Dispatcher [employer] EDLA Suzette Garcia, ALEJANDROC AUTO SERVICE REPRESENTATIVE-Radha Chase Sam, RN RN sr5 Landon Singer jp3
--- NOTE | 2019-04-25 12:59 | EDPHYS ---
Physician Documentation [facility] Name: Carmel Grove Age: 53 yrs Sex: Female : 1965 Arrival Date: 04/25/2019 Time: 11:33 Bed 28 Private MD: ED Physician Ervin Pedroza HPI: 04/25 11:53 This 53 yrs old Female presents to ER via Unassigned with complaints of snw Cough, Congestion. 11:53 The patient or guardian reports airway noise, cough, hoarse voice. Onset: The snw symptoms/episode began/occurred suddenly, 2 day(s) ago, and became persistent. Severity of symptoms: At their worst the symptoms were moderate. Associated signs and symptoms: Pertinent positives: fever, congestion, diarrhea. The patient has not experienced similar symptoms in the past. It is unknown whether or not the patient has recently seen a physician. 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 - Ebola Screening: : Patient negative for fever greater than or equal to 101.5 degrees Fahrenheit, and additional compatible Ebola Virus Disease symptoms. ROS: 11:52 Eyes: Negative for injury, pain, redness, and discharge, ENT: Negative for injury, snw pain, and discharge, Neck: Negative for injury, pain, and swelling, Cardiovascular: Negative for chest pain, palpitations, and edema, Abdomen/GI: Negative for abdominal pain, nausea, vomiting, and constipation, Diarrhea yesterday Back: Negative for injury and pain, : Negative for injury, bleeding, discharge, and swelling, MS/Extremity: Negative for injury and deformity, Skin: Negative for injury, rash, and discoloration, Neuro: Negative for headache, weakness, numbness, tingling, and seizure. 11:52 Constitutional: Positive for body aches, fever, malaise. Exam: 11:51 Head/Face: Normocephalic, atraumatic. Eyes: Pupils equal round and reactive to light, snw extra-ocular motions intact. Lids and lashes normal. Conjunctiva and sclera are non-icteric and not injected. Cornea within normal limits. Periorbital areas with no swelling, redness, or edema. ENT: Nares patent. No nasal discharge, no septal abnormalities noted. Tympanic membranes are normal and external auditory canals are clear. Oropharynx with no redness, swelling, or masses, exudates, or evidence of obstruction, uvula midline. Mucous membranes moist. Neck: Trachea midline, no thyromegaly or masses palpated, and no cervical lymphadenopathy. Supple, full range of motion without nuchal rigidity, or vertebral point tenderness. No Meningismus. Chest/axilla: Normal chest wall appearance and motion. Nontender with no deformity. No lesions are appreciated. Cardiovascular: Regular rate and rhythm with a normal S1 and S2. No gallops, murmurs, or rubs. Normal PMI, no JVD. No pulse deficits. 11:51 Abdomen/GI: Soft, non-tender, with normal bowel sounds. No distension or tympany. No guarding or rebound. No evidence of tenderness throughout. Back: No spinal tenderness. No costovertebral tenderness. Full range of motion. Skin: Warm, dry with normal turgor. Normal color with no rashes, no lesions, and no evidence of cellulitis. MS/ Extremity: Pulses equal, no cyanosis. Neurovascular intact. Full, normal range of motion. Neuro: Awake and alert, GCS 15, oriented to person, place, time, and situation. Cranial nerves II-XII grossly intact. Motor strength 5/5 in all extremities. Sensory grossly intact. Cerebellar exam normal. Normal gait. Psych: Awake, alert, with orientation to person, place and time. Behavior, mood, and affect are within normal limits. 11:51 Constitutional: The patient appears alert, awake. 11:51 Respiratory: the patient does not display signs of respiratory distress, Respirations: normal, Breath sounds: wheezing: that is severe, is heard diffusely, bronchitic cough. Vital Signs: 12:14 BP 127 / 71; Pulse 100; Resp 20; Temp 99.5; Pulse Ox 95% on R/A; Weight 65.32 kg (R); sr5 Height 5 ft. 1 in. (154.94 cm); Pain 7/10; 12:55 BP 127 / 71; Pulse 95; Resp 20; Pulse Ox 94% on R/A; sr5 13:07 BP 116 / 74; Pulse 96; Resp 20; Pulse Ox 98% on 10% Simple Mask; jp3 14:00 BP 124 / 71; Pulse 104; Resp 18; Pulse Ox 97% ; sr5 12:14 Body Mass Index 27.21 (65.32 kg, 154.94 cm) sr5 12:55 2nd albuterol started sr5 14:00 #3 albuterol neb in progress sr5 MDM: 11:41 Patient medically screened. [facility] 11:50 Data reviewed: vital signs, nurses notes. Data interpreted: Pulse oximetry: on room snw air. Counseling: I had a detailed discussion with the patient and/or guardian regarding: the need for outpatient follow up, for definitive care, smoking cessation. Special discussion: Based on the history and exam findings, there is no indication for further emergent testing or inpatient evaluation. I discussed with the patient/guardian the need to see the primary care provider for further evaluation of the symptoms. 04/25 11:50 Order name: Flu; Complete Time: 12:27 snw 04/25 11:50 Order name: Chest Pa And Lat (2 Views) XRAY; Complete Time: 12:55 snw 04/25 14:19 Order name: Diet Regular; Complete Time: 14:19 snw Administered Medications: 12:11 Not Given (Patient Refused): predniSONE 60 mg PO once sr5 12:12 Drug: Pepcid 20 mg Route: PO; sr5 14:00 Follow up: Response: No adverse reaction sr5 14:25 Follow up: Response: No adverse reaction sr5 12:12 Drug: Zithromax 500 mg Route: PO; sr5 14:00 Follow up: Response: No adverse reaction sr5 14:24 Follow up: Response: No adverse reaction sr5 13:59 Drug: Albuterol 2.5 mg Route: Inhalation; sr5 14:00 Follow up: Response: Marked relief of symptoms sr5 14:25 Follow up: Response: Marked relief of symptoms sr5 13:59 Drug: Albuterol 2.5 mg Route: Inhalation; sr5 13:59 Drug: Albuterol 2.5 mg Route: Inhalation; sr5 14:24 Drug: Motrin 400 mg Route: PO; sr5 14:24 Follow up: Response: Medication administered at discharge. sr5 Disposition: 04/25/19 12:57 Discharged to Home. Impression: Acute bronchitis. - Condition is Stable. - Discharge Instructions: Acute Bronchitis, Adult, Fever, Adult, Steps to Quit Smoking, Smoking Hazards, Cough, Adult. - Prescriptions for Prednisone 20 mg Oral Tablet - take 2 tablet by ORAL route once daily for 5 days; 10 tablet. Albuterol Sulfate 90 mcg/actuation - inhale 1-2 puff by INHALATION route every 4-6 hours; 1 Inhaler. Zithromax 500 mg Oral Tablet - take 1 tablet by ORAL route once daily for 5 days; 5 tablet. - Medication Reconciliation Form, Thank You Letter, Antibiotic Education, Prescription Opioid Use form. - Follow up: Private Physician; When: 2 - 3 days; Reason: Recheck today's complaints, Continuance of care, Re-evaluation by your physician. Follow up: Emergency Department; When: As needed; Reason: Worsening of condition. Addendum: 05/03/2019 09:14 Co-signature as Attending Physician, Ervin Pedroza MD I agree with the assessment and c colon plan of care. Signatures: Dispatcher [employer] Ervin Adams MD MD cha Therrien, Shelly, AWNING FRAME MAKER-C AWNING FRAME MAKER-Csnw Jg Patel, RN RN sr5 Corrections: (The following items were deleted from the chart) 04/25 14:29 12:57 04/25/2019 12:57 Discharged to Home. Impression: Acute bronchitis. Condition is sr5 Stable. Forms are Medication Reconciliation Form, Thank You Letter, Antibiotic Education, Prescription Opioid Use. Follow up: Private Physician; When: 2 - 3 days; Reason: Recheck today's complaints, Continuance of care, Re-evaluation by your physician. Follow up: Emergency Department; When: As needed; Reason: Worsening of condition. snw
[2019-04-25] MEDS ORDERED: IBUPROFEN 400 MG TAB ONE (14:22)
[2019-04-25 14:40] VITALS: TEMP 99.5
[2019-04-25 14:44] VITALS: BP 124/71; O2SAT 97
== END 2019-04-25 14:29 | disposition home or self-care (01) ==
LOC: ER 11:28
DX: J20.9 Acute bronchitis, unspecified (principal); F17.210 Nicotine dependence, cigarettes, uncomplicated
CPT/HCPCS: 71046; 87804; 99285; J7512

== ENCOUNTER 2019-07-17 | Emergency (ER) | payer SELFPAY ==
--- OUTSIDE RECORDS SUMMARY | 2019-07-17 09:46 | XMS REPORT ---
:1965 [facility] Address [address] [place] [address] Dr. Frias [address] [place] [id number] Care Team Providers Name Role Phone Unavailable Unavailable Unavailable Problems This patient has no known problems. Allergies, Adverse Reactions, Alerts This patient has no known allergies or adverse reactions. Medications This patient has no known medications.
--- OUTSIDE RECORDS SUMMARY | 2019-07-17 09:51 | XMS REPORT | Summary of Care ---
:1965 Author Organization [facility] Address [address] [place] [address] Care Team Providers Name Role Phone Bre Richard Primary Care Provider Reason for Visit Reason Comments Follow-up 3mo (Routine) Status Reason Specialty Diagnoses / Referred By Referred To Procedures Contact Contact New Request Cardiology Diagnoses Peripheral edema (HFpEF) heart failure with preserved ejection fraction Bre Richard FNP Procedures CONSULT/REFERRAL CARDIOLOGY [address] [place] [address] Encounter Details Date Type Department Care Team Description 05/11/[address] [facility] Cindy Wilalms MD Chronic heart failure Cardiology- [address] with preserved [address], [address] (Primary Dx) [place] [phone] Allergies Active Allergy Reactions Severity Noted Date Comments No Known Allergies 03/16/2005 documented as of this encounter (statuses as of 05/11/2019) Medications Medication Sig Dispensed Refills Start End Date Status Date SERTraline Take 1 Tab by 30 Tab 10 Active (ZOLOFT) 100 mg mouth daily. 4 tablet risperidone Take 1 mg by 0 Active (RISPERDAL ORAL) mouth every morning. divalproex 500 mg Take 3 tablets 0 Active EC tablet by mouth every morning traZODONE 100 mg Take 100 mg by 0 Active tablet mouth at bedtime. albuterol 90 Inhale 2 Puffs 8.5 g 2 Active mcg/actuation every 6 (six) 9 inhalerIndications hours as needed : Simple chronic for Wheezing or bronchitis Shortness of Breath. peg-electrolyte Take as directed 4000 mL 0 Active soln before 9 236-22.74-6.74 colonoscopy -5.86 gram solutionIndication s: Colon cancer screening, Family history of colon cancer furosemide 40 mg Take 1 tablet by 30 tablet 5 Active tabletIndications: mouth daily. 0 Chronic heart failure with preserved ejection fraction KCL 20 mEq Take 1 tablet by 30 tablet 1 05/11/19 Discontinued tabletIndications: mouth daily. 9 20 Leg edema, Venous insufficiency furosemide 40 mg Take 1 tablet by 30 tablet 1 05/11/19 Discontinued tablet mouth daily. 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, single episode, 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 Overview: MDD recurrent ICD10 Diagnosis Term Industrial Organization Manager Utility Posttraumatic stress disorder 03/16/2005 Convulsions 03/16/2005 Overview: ICD10 Diagnosis Term Industrial Organization Manager Utility Seizures PTSD (post-traumatic stress disorder) Peripheral edema Depression Bipolar disorder with depression Anxiety documented as of this encounter (statuses as of 05/11/2019) Immunizations Name Administration Dates Next Due Influenza Virus Vaccine Quad .5 mL IM 6+ MO 02/12/2019 documented as of this encounter Social History Tobacco Use Types Packs/Day Years [...] Sign Reading Time Taken Comments Blood Pressure 121/76 05/11/2019 1:17 PM OIL FIELD TESTER Pulse 85 05/11/2019 1:17 PM OIL FIELD TESTER Temperature - - Respiratory Rate 19 05/11/2019 1:17 PM OIL FIELD TESTER Oxygen Saturation 94% 05/11/2019 1:17 PM OIL FIELD TESTER Inhaled Oxygen Concentration - - Weight 67.4 kg (148 lb 8 oz) 05/11/2019 1:17 PM OIL FIELD TESTER Height 154.9 cm (5' 1") 05/11/2019 1:17 PM OIL FIELD TESTER Body Mass Index 28.06 05/11/2019 1:17 PM OIL FIELD TESTER documented in this encounter Progress Notes Cindy Willams MD - 05/11/2019 1:20 PM CST CARDIOLOGY CLINIC NOTE 05/11/2019 Reason for Referral/Presenting Complaint: leg edema PCP: PATIENT DOES NOT HAVE A PCP History of Present Illness: [place] is a 53 years old female without significant cardiac history. She was here for leg edema. This has been going on for years. Denies SOB or orthopnea. Has been on lasix 20 mg daily without any improvement. She smokes. BNP is elevated. CXR showed mild congestion. We increased lasix to 40mg daily last visit. She is doing well. No leg edema. ECHO and venous Duplex unremarkable. [...] 1 tablet by mouth daily. 30 tablet 5 peg-electrolyte soln [id number] -5.86 gram solution Take as directed before colonoscopy 4000mL 0 albuterol 90 mcg/actuation inhaler Inhale 2 Puffs [...] file Gets together: Not on file Attends jainism service: Not on file Active member of [...] family violence History of bipolar disorder. 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 Family History Family History Problem Relation Age of Onset Coronary Heart Disease Mother [place] @ 72 Cancer Father Diabetes Sister Physical Examination: BP 121/76 (BP Location: Left arm, Patient Position: Sitting, BP CUFF SIZE: Adult Small) | Pulse 85| Resp 19 | Ht 5' 1" (1.549 m) | Wt 148 lb 8 oz (67.4 kg) | SpO2 94% | BMI 28.06 kg/m Constitutional: alert and oriented x 3 (person, place and date/time); no apparent distress ENT: normocephalic atraumatic, supple, no lymphadenopathy, no bruits, no JVD Lungs: clear to auscultation bilaterally Cardiovascular: S1, S2 normal, regular; no murmurs, rubs or gallops GI: soft; non-tender; non-distended; normoactive bowel sounds : not examined Musculoskeletal: Extremities: no clubbing, cyanosis, - pitting edema Skin: no rashes Neuro: no focal deficits Cardiovascular testing: Chest X-Ray: Mild congestion EKG: Normal sinus rhythm. Normal EKG. ECHO--Normal LVEF Venous duplex--Normal Assessment/Plan: ICD-10-CM ICD-9-CM 1. Chronic heart failure with preserved ejection fraction I50.32 428.9 Chronic leg edema with elevated BNP and mild pulmonary congestion. No SOB or orthopnea. Possible diastolic heart failure. Doing well with volume status. Will continue lasix at 40 mg daily. She is off KCL 20 mEq daily. Advised to try compression stockings. Low salt diet. Patient was counseled for lifestyle modifications including: diet, exercise, weight loss and smokingcessation. RTC 6 months Cindy Willams MD, FAC, TOAN Slicing Machine Operator/Tender, Division of Cardiology [facility] ; Pager documented in this encounter Plan of Treatment Date Type Specialty Care Team Description 05/13/2019 Office Visit Family Medicine Bre Richard, STRATEGIC BUSINESS DEVELOPMENT [address] [place] [address] [phone] Tuan, Ramiro Primary 05/27/2019 Office Visit Pulmonary Disease Eunice Childers [address] [place] [phone] 06/14/2019 Hospital Encounter Surgery PriceGurjit varner Personal history of K, DO colonic polyps [id number] [place] [address] [phone] 06/14/2019 Surgery Surgery PriceGurjit COLONOSCOPY K, DO [id number] [place], [place] [address] 11/09/2019 Office Visit Cardiology Cindy Willams MD [address] [place] [address] [address] [place] [address] Health Maintenance Due Date Last Done Comments DTaP,Tdap,and Td Vaccines (1 05/12/2019 Postponed from 07/05/1974 - Tdap) (Alternative Guidelines) PAP SMEAR 05/12/2019 Postponed from 07/05/1984 (Alternative Guidelines) PNEUMOCOCCAL 0-64 YEARS 05/12/2019 Postponed from 07/05/1969 COMBINED SERIES (1 of 3 - (Alternative Guidelines) PCV13) Zoster Recombinant Vaccine 05/12/2019 Postponed from 07/05/2013 (SHINGRIX) (1 of 2) (Alternative Guidelines) Breast Cancer Screening 01/01/2020 12/31/2018, (MAMMOGRAM) 05/26/2013 LUNG CANCER SCREEN: 03/22/2020 03/22/2019 Recommended for age 55-80 with 30 + pack year history COLONOSCOPY 02/08/2029 02/08/2019 HEPATITIS C (HCV) SCREEN Completed 08/02/2013 INFLUENZA VACCINE Completed 02/12/2019 documented as of this encounter Results Not on filedocumented in this encounter Visit Diagnoses Diagnosis Chronic heart failure with preserved ejection fraction - Primary documented in this encounter Insurance Payer Benefit Plan Subscriber ID Effective Phone Address Type / Group Dates CR CO. I CR CO. [id number] [address] [place] [address] [address] ent [address] [place] [address] General (Home) Delivery [phone] [place], (Work) [place] [address] documented as of this encounter
--- OUTSIDE RECORDS SUMMARY | 2019-07-17 09:51 | XMS REPORT | Summary of Care ---
:1965 Author Organization [facility] Address [address] [place] [address] Care Team Providers Name Role Phone Bre Richard Primary Care Provider Reason for Visit Reason Comments Lab Results Encounter Details Date Type Department Care Team Description 05/11/2019 Telephone [facility] Bre Bustamante FNP Lab Results [facility] [address] [facility] [address] [facility], [address] [place] [address] [place] [address] Allergies Active Allergy Reactions Severity Noted Date Comments No Known Allergies 03/16/2005 documented as of this encounter (statuses as of 05/12/2019) Medications Medication Sig Dispensed Refills Start End [...] cancer screening, Family history of colon cancer KCL 20 mEq Take 1 tablet by 30 tablet 1 05/11/19 Discontinued tabletIndications: mouth daily. 9 20 Leg edema, Venous insufficiency furosemide 40 mg Take 1 tablet by 30 tablet 1 05/11/19 Discontinued tablet mouth daily. 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, single episode, 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 Overview: MDD recurrent ICD10 Diagnosis Term Machine Maintenance Mechanic Utility Posttraumatic stress disorder 03/16/2005 Convulsions 03/16/2005 Overview: ICD10 Diagnosis Term Machine Maintenance Mechanic Utility Seizures PTSD (post-traumatic stress disorder) Peripheral edema Depression Bipolar disorder with depression Anxiety documented as of this encounter (statuses as of 05/12/2019) Immunizations Name Administration Dates Next Due Influenza [...] 05/13/2019 Office Visit Family Medicine Bre Richard, CLIF [address] [place] [place], [place] [address] Ramiro Dickerson 05/27/2019 Office Visit Pulmonary Disease ChildersEunice DO [address] [place] [phone] 06/14/2019 Hospital Encounter Surgery Gurjit Thrasher Personal history of K, DO colonic polyps [id number] [place], [place] [address] 06/14/2019 Surgery Surgery Gurjit Thrasher COLONOSCOPY K, DO [id number] [place], [place] [address] 11/09/2019 Office Visit Cardiology Cindy Willams MD [address] [place] [address] [address] [place] [address] Health Maintenance Due Date Last [...] Address Type / Group Dates CR HANKINS [id number] 2018-Prese [phone] [facility] PRIMARY CARE PRIMARY CARE nt [address] [place] [address] CR CO. I CR BOYD [id number] [address] [place] [address] [address] C ent [address] [place] [address] documented as of this encounter
--- OUTSIDE RECORDS SUMMARY | 2019-07-17 09:51 | XMS REPORT | Summary of Care ---
:1965 Author Organization [facility] Address [address] [place] [address] Care Team Providers Name Role Phone Bre Richard Primary Care Provider Reason for Visit Reason Comments Follow-up 3mo (Routine) Status Reason Specialty Diagnoses / Referred By Referred To Procedures Contact Contact New Request Cardiology Diagnoses Peripheral edema (HFpEF) heart failure with preserved ejection fraction Bre Richard FNP Procedures CONSULT/REFERRAL CARDIOLOGY [address] [place] [address] Encounter Details Date Type Department Care Team Description 05/11/2019 Office Visit [facility] Cindy Willams MD Chronic heart failure Cardiology- [address] with preserved 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, single episode, 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 Overview: MDD recurrent ICD10 Diagnosis Term Tube Pusher Utility Posttraumatic stress disorder 03/16/2005 Convulsions 03/16/2005 Overview: ICD10 Diagnosis Term Tube Pusher Utility Seizures PTSD (post-traumatic stress disorder) Peripheral [...] Comments Blood Pressure 121/76 05/11/2019 1:17 PM SPECIAL EDUCATION ITINERANT TEACHER Pulse 85 05/11/2019 1:17 PM SPECIAL EDUCATION ITINERANT TEACHER Temperature - - Respiratory Rate 19 05/11/2019 1:17 PM SPECIAL EDUCATION ITINERANT TEACHER Oxygen Saturation 94% 05/11/2019 1:17 PM SPECIAL EDUCATION ITINERANT TEACHER Inhaled Oxygen Concentration - - Weight 67.4 kg (148 lb 8 oz) 05/11/2019 1:17 PM SPECIAL EDUCATION ITINERANT TEACHER Height 154.9 cm (5' 1") 05/11/2019 1:17 PM SPECIAL EDUCATION ITINERANT TEACHER Body Mass Index 28.06 05/11/2019 1:17 PM SPECIAL EDUCATION ITINERANT TEACHER documented in this encounter Progress Notes Cindy [...] file Gets together: Not on file Attends mormon service: Not on file Active member of [...] violence History of bipolar disorder. 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 Family History Family History Problem Relation Age of Onset Coronary Heart Disease Mother [place] @ 72 Cancer Father Diabetes Sister Physical [...] 6 months Cindy Willams MD, FAC, TOAN Email Marketing Intern, Division of Cardiology [facility] ; Pager documented in this encounter Plan of Treatment Date Type Specialty Care Team Description 05/13/2019 Office Visit Family Medicine Bre Richard, ATOMIC FUEL ASSEMBLER [address] [place] [address] [phone] Tuan, Ramiro Primary 05/27/2019 Office Visit Pulmonary Disease Eunice Childers [address] [place] [address] 06/14/2019 Hospital Encounter Surgery PriceGurjit varner Personal history of K, DO colonic polyps [id number] [place] [address] [phone] 06/14/2019 Surgery Surgery PriceGurjit COLONOSCOPY K, DO [id number] [place], [place] [address] 11/09/2019 Office Visit Cardiology Cindy Willams MD [address] [place] [address] [address] [place] [address] Health Maintenance Due Date Last [...] Group Dates CR CO. I CR CO. [id number] [address] [address] H C I H C ent [address] [place] [address] General (Home) Delivery [phone] [place], (Work) [place] [address] documented as of this encounter
--- OUTSIDE RECORDS SUMMARY | 2019-07-17 09:51 | XMS REPORT | Summary of Care ---
:1965 Author Organization [facility] Address [address] [place] [address] Care Team Providers Name Role Phone Bre Richard Primary Care Provider Reason for Visit Reason Comments Lab Results Encounter Details Date Type Department Care Team Description 05/11/2019 Telephone [facility] Bre Bustamante FNP Lab Results [facility] 301 [facility] [address] [facility], [address] [place] [address] [place] [phone] Allergies Active Allergy Reactions Severity Noted Date Comments No Known Allergies 03/16/2005 documented as of this encounter (statuses as of 05/11/2019) Medications Medication Sig Dispensed Refills Start Date [...] Overview: Added automatically from request for surgery [id number] Colon cancer screening 12/24/2018 Overview: Added automatically from request for surgery [id number] Family history of colon cancer 12/24/2018 Overview: Added automatically from request for surgery [id number] 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 Care, Ang Primary 05/27/2019 Office Visit Pulmonary Disease Eunice Childers DO [address] [place] [address] 06/14/2019 Hospital Encounter Surgery Gurjit Thrasher Personal history of K, DO colonic polyps [id number] [place], [place] [address] 06/14/2019 Surgery Surgery Gurjit Thrasher COLONOSCOPY K, DO [id number] [place], [place] [id number] Health Maintenance Due Date Last Done Comments PNEUMOCOCCAL 0-64 YEARS COMBINED SERIES (1 07/05/1969 of 3 - PCV13) DTaP,Tdap,and Td Vaccines (1 - Tdap) 07/05/1974 PAP SMEAR 07/05/1984 Zoster Recombinant Vaccine (SHINGRIX) (1 07/05/2013 of 2) Breast Cancer Screening (MAMMOGRAM) 01/01/2020 12/31/2018, 05/26/2013 LUNG CANCER SCREEN: Recommended for age 1103/22/2020 03/22/2019 55-80 with 30 + pack year history COLONOSCOPY 02/08/2029 02/08/2019 HEPATITIS C (HCV) SCREEN Completed 08/02/2013 INFLUENZA VACCINE Completed 02/12/2019 documented as of this encounter Results Not on filedocumented in this encounter Insurance Payer Benefit Plan Subscriber ID Effective Phone Address Type / Group Dates CR HANKINS [id number] 2018-Prese [phone] [facility] PRIMARY CARE PRIMARY CARE nt [address] [place] [address] CR CO. I CR COLeland [id number] [address] [address] H C I [place] [address] [place] [id number] documented as of this encounter
--- OUTSIDE RECORDS SUMMARY | 2019-07-17 09:52 | XMS REPORT | Summary of Care ---
:1965 Author Organization [facility] Address [address] [place] [address] Care Team Providers Name Role Phone Bre Richard Primary Care Provider Reason for Visit Reason Comments Follow-up COPD (Routine) Status Reason Specialty Diagnoses / Procedures Referred By Referred To Contact Contact Closed Pulmonary Disease Diagnoses Stage 1 mild COPD by GOLD classification Bre Richard FNP Procedures CONSULT/REFERRAL PULMONARY [address] [place] [address] Encounter Details Date Type Department Care Team Description 05/27/2019 Office Visit [facility] ADC Eunice Childers DO Stage 1 mild COPD by GOLD classification (Primary Dx); Pulmonary Clinic [address] [facility] Tobacco abuse [address] [place] [address] , [address] [phone] Allergies Active Allergy Reactions Severity Noted Date Comments No Known Allergies 03/16/2005 documented as of this encounter (statuses as of 05/27/2019) Medications Medication Sig Dispensed Refills Start Date [...] Wheezing or bronchitis Shortness of Breath. peg-electrolyte soln Take as directed 4000 mL 0 12/23/2018 Active 236-22.74-6.74 -5.86 before colonoscopy gram solutionIndications: Colon cancer screening, Family history of colon cancer furosemide 40 mg Take 1 tablet by 30 tablet 5 05/11/2019 Active tabletIndications: mouth daily. Chronic heart failure with preserved ejection fraction atorvastatin (LIPITOR) Take 1 tablet by 30 tablet 5 05/13/2019 Active 20 mg mouth at bedtime. tabletIndications: Mixed hyperlipidemia oxybutynin chloride 5 Take 1 tablet by 60 tablet 5 05/13/2019 Active mg tabletIndications: mouth 2 (two) Overactive bladder times daily. 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, single episode, 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 Overview: MDD recurrent ICD10 Diagnosis Term Wine Consultant Utility Posttraumatic stress disorder 03/16/2005 Convulsions 03/16/2005 Overview: ICD10 Diagnosis Term Wine Consultant Utility Seizures PTSD (post-traumatic stress disorder) Peripheral edema Depression Bipolar disorder with depression Anxiety documented as of this encounter (statuses as of 05/27/2019) Immunizations Name Administration Dates Next Due Influenza Virus Vaccine Quad .5 mL IM 6+ MO 02/12/2019 Pneumococcal Polysaccharide, PPSV23 (PNEUMOVAX) 02/12/2019 TDAP (ADACEL) VACCINE 02/12/2019 Zoster Vaccine Recombinant 04/14/2019, 02/12/2019 documented as of this encounter Social History Tobacco Use Types Packs/Day Years Used Date Current Every Day Smoker Cigarettes 0.25 35 Smokeless Tobacco: Never Used Alcohol Use [...] Sign Reading Time Taken Comments Blood Pressure 123/76 05/27/2019 10:10 AM SYSTEMS PLANNER Pulse 76 05/27/2019 10:10 AM SYSTEMS PLANNER Temperature - - Respiratory Rate 19 05/27/2019 10:10 AM SYSTEMS PLANNER Oxygen Saturation 96% 05/27/2019 10:10 AM SYSTEMS PLANNER Inhaled Oxygen Concentration - - Weight 70.3 kg (155 lb) 05/27/2019 10:10 AM SYSTEMS PLANNER Height 154.9 cm (5' 1") 05/27/2019 10:10 AM SYSTEMS PLANNER Body Mass Index 29.29 05/27/2019 10:10 AM SYSTEMS PLANNER documented in this encounter Progress Notes Eunice Childers, - 05/27/2019 10:00 AM CST [facility] Interventional Pulmonology Clinic Chief Complaint: Follow up COPD History of Present Illness: Carmel Grove is a 53 year old female with past medical history as below here for follow up of shortness of breath/COPD. Doing better since being on inhalers. Can go about 75 feet before she gets short of breath. Improved with rest. Cough is improved. As far as smoking, down to less than 10 cigarettes per day. Past Medical History: has a past medical history of Anxiety, Bipolar disorder with depression, Cancer of parotid gland (2013), Depression, Peripheral edema, Primary cancer of parotid gland (2013), PTSD (post-traumatic stress disorder), and Seizures. Past Surgical History: has a past surgical history that includes parotidectomy (08/02/2013); appendectomy (2000); and colonoscopy (N/A, 02/08/2019). Family History: family history includes Cancer in her father; Coronary Heart Disease in her mother; Diabetes in her sister. Social History: reports that she has been smoking cigarettes. She has a 8.75 pack-year smoking history. She has never used smokeless tobacco. She reports that she drank alcohol. She reports that she does not use drugs. Review of Systems: Review of Systems Constitutional: Negative. HENT: Negative. Eyes: Negative. Respiratory: Positive for cough and shortness of breath. Cardiovascular: Positive for leg swelling. Gastrointestinal: Negative. Genitourinary: Negative. Musculoskeletal: Negative. Skin: Negative. Neurological: Positive for seizures. Psychiatric/Behavioral: Negative. Endocrine: Endocrine negative Objective: BP 123/76 (BP Location: Left arm, Patient Position: Sitting, BP CUFF SIZE: Adult Medium) | Pulse 76 | Resp 19 | Ht 5' 1" (1.549 m) | Wt 155 lb (70.3 kg ) | SpO2 96% | BMI 29.29 kg/m Physical Exam Constitutional: She is oriented to person, place, and time. She appears well- developed and well-nourished. HENT: Head: Normocephalic and atraumatic. Eyes: Conjunctivae and EOM are normal. Neck: Normal range of motion. Neck supple. Cardiovascular: Normal rate and regular rhythm. Pulmonary/Chest: Effort normal and breath sounds normal. Abdominal: Soft. Bowel sounds are normal. Musculoskeletal: Normal range of motion. She exhibits edema. Neurological: She is alert and oriented to person, place, and time. Skin: Skin is warm and dry. Psychiatric: She has a normal mood and affect. Her behavior is normal. Judgment and thought content normal. Labs/Studies: PFT - very mild obstructive lung disease CXR mild congestion Assessment: ICD-10-CM ICD-9-CM 1. Stage 1 mild COPD by GOLD classification J44.9 496 2. Tobacco abuse Z72.0 305.1 Plan: 1. Continue with albuterol 2. Continue with smoking cessation 3. Reduce salt intake documented in this encounter Plan of Treatment Date Type Specialty Care Team Description 06/14/2019 Hospital Encounter Surgery Gurjit Thrasher, Personal history of DO colonic polyps [id number] [place] [address] [phone] 06/14/2019 Surgery Surgery Gurjit Thrasher, COLONOSCOPY DO [id number] [place], [place] [address] 11/09/2019 Office Visit Cardiology Cindy Willams MD [address] [place] [address] [address] [place], [place] [address] Health Maintenance Due Date Last Done Comments PAP SMEAR 07/05/1984 Breast Cancer Screening (MAMMOGRAM) 01/01/2020 12/31/2018, 05/26/2013 PNEUMOCOCCAL 0-64 YEARS COMBINED SERIES (2 02/13/2020 02/12/2019 of 3 - PCV13) LUNG CANCER SCREEN: Recommended for age 1103/22/2020 03/22/2019 55-80 with 30 + pack year history COLONOSCOPY 02/08/2029 02/08/2019 DTaP,Tdap,and Td Vaccines (2 - Td) 02/12/2029 02/12/2019 HEPATITIS C (HCV) SCREEN Completed 08/02/2013 INFLUENZA VACCINE Completed 02/12/2019 Zoster Recombinant Vaccine (SHINGRIX) Completed 04/14/2019, 02/12/2019 documented as of this encounter Results Not on filedocumented in this encounter Visit Diagnoses Diagnosis Stage 1 mild COPD by GOLD classification - Primary Tobacco abuse Tobacco use disorder documented in this encounter Insurance Payer Benefit Plan Subscriber ID Effective Phone Address Type / Group Dates [place] [id number] [address] [address] [address] ent [address] [place] [address] General (Home) Delivery [phone] [facility] [place] (Work) [place] [address] documented as of this encounter
--- OUTSIDE RECORDS SUMMARY | 2019-07-17 09:52 | XMS REPORT | Summary of Care ---
:1965 Author Organization [facility] Address [address] [place] [address] Care Team Providers Name Role Phone Bre Richard Primary Care Provider Reason for Visit Reason Comments Follow-up Encounter Details Date Type Department Care Team Description 05/13/2019 Office Visit [facility] Bre Richard FNP [address] [place] [address] Mixed hyperlipidemia (Primary Dx); [facility] Primary Overactive bladder Clinic [address] [place] [phone] Allergies Active Allergy Reactions Severity Noted Date Comments No Known Allergies 03/16/2005 documented as of this encounter (statuses as of 05/13/2019) Medications Medication Sig Dispensed Refills Start Date [...] as of this encounter (statuses as of 05/13/2019) Active Problems Problem Noted Date Personal history of colonic polyps 02/09/2019 Overview: Added automatically from request for surgery [id number] Colon cancer screening 12/24/2018 Overview: Added automatically from request for surgery [id number] Family history of colon cancer 12/24/2018 Overview: Added automatically from request for surgery [id number] 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, single episode, 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 Overview: MDD recurrent ICD10 Diagnosis Term Combo Welder Utility Posttraumatic stress disorder 03/16/2005 Convulsions 03/16/2005 Overview: ICD10 Diagnosis Term Combo Welder Utility Seizures PTSD (post-traumatic stress disorder) Peripheral edema Depression Bipolar disorder with depression Anxiety documented as of this encounter (statuses as of 05/13/2019) Immunizations Name Administration Dates Next Due Influenza [...] Sign Reading Time Taken Comments Blood Pressure 100/60 05/13/2019 8:51 AM DINING CAR SERVER Pulse 79 05/13/2019 8:51 AM DINING CAR SERVER Temperature 36.6 C (97.8 F) 05/13/2019 8:51 AM DINING CAR SERVER Respiratory Rate 20 05/13/2019 8:51 AM DINING CAR SERVER Oxygen Saturation 97% 05/13/2019 8:51 AM DINING CAR SERVER Inhaled Oxygen Concentration - - Weight 65.9 kg (145 lb 3.2 oz) 05/13/2019 8:51 AM DINING CAR SERVER Height 154.9 cm (5' 1") 05/13/2019 8:51 AM DINING CAR SERVER Body Mass Index 27.44 05/13/2019 8:51 AM DINING CAR SERVER documented in this encounter Progress Notes Bre Richard, CLIF - 05/13/2019 10:00 AM CST Cc: Chief Complaint Patient presents with Follow-up HPI Carmel Grove is a 53 year old female to review labs from last week. Seen by Dr Willams on 05/11/18, who recommended for her to say on 40mg of lasix daily, compression hose and low salt diet for help with her peripheral edema. States she has been having difficulty with bladder spasms and incontinence. Has taken ditropan in the past with good results. Would like to try it again Labs not elevated cholesterol levels. Will start on Lipitor 20mg daily at HS. Denies fevers or chills. Allergies Carmel is allergic to none [no known allergies]. Medications Outpatient Medications Prior to Visit Medication Sig Dispense Refill furosemide 40 mg tablet Take 1 tablet by mouth daily. 30 tablet 5 albuterol 90 mcg/actuation inhaler Inhale 2 Puffs [...] Tab by mouth daily. 30 Tab 10 peg-electrolyte soln 236-22.74-6.74 -5.86 gram solution Take as directed before colonoscopy 4000mL 0 No facility-administered medications prior to visit. Histories Past Medical History: Diagnosis Date Anxiety Bipolar disorder with depression Cancer of parotid gland 2013 Depression Peripheral edema Primary cancer of parotid gland 2013 PTSD (post-traumatic stress disorder) Seizures Past Surgical History: Procedure Laterality Date APPENDECTOMY 2000 COLONOSCOPY N/A 02/08/2019 Surgeon: Clyde Coughlin MD; Location: [place] OR Location PAROTIDECTOMY 08/02/2013 Surgeon: Esther Treivño MD; Location: [facility] OR LOCATION Social History Socioeconomic History Marital status: Spouse [...] violence History of bipolar disorder. 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 HENT: Negative. Respiratory: Positive for cough, shortness of breath and wheezing. Cardiovascular: Positive for leg swelling. Negative for chest pain and palpitations. Genitourinary: Positive for bladder incontinence and urgency. Negative for dysuria, flank pain and difficulty urinating. Musculoskeletal: Positive for back pain. Skin: Negative. Psychiatric/Behavioral: Negative. Vital Signs BP 100/60 (BP Location: Left arm, Patient Position: Sitting) | Pulse 79 | Temp 36.6 C (97.8 F)(Oral) | Resp 20 | Ht 5' 1" (1.549 m) | Wt 145 lb 3.2 oz (65.9 kg) | SpO2 97% | BMI 27.44 kg/m Physical Exam Constitutional: She appears well-developed and well-nourished. No distress. HENT: Right Ear: External ear normal. Left Ear: External ear normal. Mouth/Throat: Oropharynx is clear and moist. Eyes: Pupils are equal, round, and reactive to light. Conjunctivae and EOM are normal. Cardiovascular: Normal rate, regular rhythm and normal heart sounds. Pulmonary/Chest: Effort normal and breath sounds normal. Abdominal: Soft. Bowel sounds are normal. Musculoskeletal: Normal range of motion. She exhibits edema. Skin: Skin is warm and dry. Psychiatric: She has a normal mood and affect. Her behavior is normal. Judgment and thought content normal. Assessment/Plan 1. Mixed hyperlipidemia - atorvastatin (LIPITOR) 20 mg tablet; Take 1 tablet by mouth at bedtime. Dispense: 30 tablet; Refill: 5 2. Overactive bladder - oxybutynin chloride 5 mg tablet; Take 1 tablet by mouth 2 (two) times daily. Dispense: 60 tablet;Refill: 5 Follow up in 6 months for Lipids and CMP Appropriate plan of care, desired health behaviors, goals and medications discussed with patient andeducational resources and self-management tools provided, as applicable. [...] if symptoms should symptoms progress or worsen. AVS reviewed and given to patient at conclusion of visit. The patient indicates understanding of these issues and agrees with the plan. Bre [facility] [place] Carrizales LVN - 05/13/2019 10:00 AM Natalia Grove is a 53 year old female Patient here today for follow up. Reports 0 pain on scale 0/10, MD notified. Reviewed medications and allergies with patient today. Fall Risk Assessment/ Screening performed with patient today and patient is not at risk for falls. documented in this encounter Plan of Treatment Date Type Specialty Care Team Description 05/27/2019 Office Visit Pulmonary Disease Eunice Childers DO [address] [place] [phone] 06/14/2019 Hospital Encounter Surgery Gurjit Thrasher Personal history of K, DO colonic polyps [id number] [place], [place] [address] 06/14/2019 Surgery Surgery Gurjit Thrasher COLONOSCOPY K, DO [id number] [place], [place] [address] 11/09/2019 Office Visit Cardiology Cindy Willams MD [address] [place] [address] [place] [address] Health Maintenance Due Date Last Done [...] filedocumented in this encounter Visit Diagnoses Diagnosis Mixed hyperlipidemia - Primary Overactive bladder Hypertonicity of bladder documented in this encounter Insurance Payer Benefit Plan / Subscriber ID Effective Phone Address Type Group Dates CR HANKINS [id number] 2018-[facility] [phone] [facility] PRIMARY CARE PRIMARY CARE [address] [place] [address] General (Home) Delivery [phone] [facility] [place] ([place] [address] documented as of this encounter
--- OUTSIDE RECORDS SUMMARY | 2019-07-17 09:52 | XMS REPORT | Summary of Care ---
:1965 Author Organization [facility] Address [address] [place] [address] Care Team Providers Name Role Phone Bre Richard Primary Care Provider Reason for Visit Reason Comments Follow-up Encounter Details Date Type Department Care Team Description 05/13/2019 Office Visit [facility] Bre Richard FNP [address] [place] [address] Mixed hyperlipidemia (Primary Dx); [facility] Primary Overactive bladder Clinic [address] [place] [phone] Allergies Active Allergy Reactions Severity Noted [...] Overview: Added automatically from request for surgery [id number] Colon cancer screening 12/24/2018 Overview: Added automatically from request for surgery [id number] Family history of colon cancer 12/24/2018 Overview: Added automatically from request for surgery [id number] 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, single episode, 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 Overview: MDD recurrent ICD10 Diagnosis Term Radio Tester Utility Posttraumatic stress disorder 03/16/2005 Convulsions 03/16/2005 Overview: ICD10 Diagnosis Term Radio Tester Utility Seizures PTSD (post-traumatic stress disorder) [...] Comments Blood Pressure 100/60 05/13/2019 8:51 AM WELDING ROBOT OPERATOR Pulse 79 05/13/2019 8:51 AM WELDING ROBOT OPERATOR Temperature 36.6 C (97.8 F) 05/13/2019 8:51 AM WELDING ROBOT OPERATOR Respiratory Rate 20 05/13/2019 8:51 AM WELDING ROBOT OPERATOR Oxygen Saturation 97% 05/13/2019 8:51 AM WELDING ROBOT OPERATOR Inhaled Oxygen Concentration - - Weight 65.9 kg (145 lb 3.2 oz) 05/13/2019 8:51 AM WELDING ROBOT OPERATOR Height 154.9 cm (5' 1") 05/13/2019 8:51 AM WELDING ROBOT OPERATOR Body Mass Index 27.44 05/13/2019 8:51 AM WELDING ROBOT OPERATOR documented in this encounter Progress Notes Bre [...] N/A 02/08/2019 Surgeon: Clyde Coughlin MD; Location: [place] OR Location PAROTIDECTOMY 08/02/2013 Surgeon: Esther Treviño MD; Location: [facility] LOC[facility] Social History Socioeconomic History [...] file Gets together: Not on file Attends sikhism service: Not on file Active member of [...] family violence History of bipolar disorder. 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 Bre [facility] [place] Carrizales LVN - 05/13/2019 10:00 AM [...] Visit Pulmonary Disease Eunice Childers DO [address] [place] [phone] 06/14/2019 Hospital Encounter Surgery Gurjit Thrasher Personal history of K, DO colonic polyps [id number] [place], [place] [address] 06/14/2019 Surgery Surgery Gurjit Thrasher COLONOSCOPY K, DO [id number] [place], [place] [address] 11/09/2019 Office Visit Cardiology Cindy Willams MD [address] [place] [address] [place] [address] Health Maintenance Due Date Last Done [...] Effective Phone Address Type Group Dates CR AHNKINS [id number] 2018-[facility] [phone] [facility] PRIMARY CARE PRIMARY CARE [address] [place] [address] General (Home) Delivery [phone] [facility] [place] ([place] [address] documented as of this encounter
--- OUTSIDE RECORDS SUMMARY | 2019-07-17 09:52 | XMS REPORT | Summary of Care ---
:[address] [facility] - Health Address [address] [place] [address] Care Team Providers Name Role Phone Bre Richard CLIF Primary Care Provider Encounter Details Date Type Department Care Team Description 04/14/[address] [facility] Doctor Unassigned, No [address] [facility] Name [place] [id number] [address] [place] [address] Allergies Active Allergy Reactions Severity Noted Date Comments No Known Allergies 03/16/2005 documented as of this encounter (statuses as of 06/18/2019) Medications Medication Sig Dispensed Refills Start Date End Date Status SERTraline (ZOLOFT) Take 1 Tab by mouth 30 Tab 10 08/05/2013 Active 100 mg tablet daily. risperidone Take 1 mg by mouth 0 Active (RISPERDAL ORAL) every morning. divalproex 500 mg EC Take 3 tablets by 0 Active tablet mouth every morning traZODONE 100 mg Take 100 mg by mouth 0 Active tablet at bedtime. albuterol 90 Inhale 2 Puffs every 8.5 g 2 11/05/2018 Active mcg/actuation 6 (six) hours as inhalerIndications: needed for Wheezing Simple chronic or Shortness of bronchitis Breath. 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, single episode, 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 Overview: MDD recurrent ICD10 Diagnosis Term Security Messenger Utility Posttraumatic stress disorder 03/16/2005 Convulsions 03/16/2005 Overview: ICD10 Diagnosis Term Security Messenger Utility Seizures PTSD (post-traumatic stress disorder) Peripheral edema Depression Bipolar disorder with depression Anxiety documented as of this encounter (statuses as of 06/18/2019) Immunizations Name Administration Dates Next Due Influenza [...] Treatment Date Type Specialty Care Team Description 07/02/2019 Hospital Encounter Surgery Selvin Samuels Personal history of MD Honorio colonic polyps [address] [place] [address] 07/02/2019 Anesthesia Event Surgery Georgette Arevalo MD PHD [address] [facility] [id number] [place] [address] 07/02/2019 Surgery Surgery Selvin Samuels COLONOSCOPY MD Honorio [address] [place] [address] [phone] 11/25/2019 Office Visit Pulmonary Disease Alvarado MarlenyjazeleazarDO [address] [place] [phone] Health Maintenance Due Date Last Done Comments [...] 04/14/2019, 02/12/2019 documented as of this encounter Procedures Procedure Name Priority Date/Time Associated Diagnosis Comments VACCINATIONS - CONSENTS, Routine 04/14/2019 12:01 AM ELIGIBILITY, HISTORY BODY LINE FINISHER documented in this encounter Results Not on filedocumented in this encounter Insurance Payer Benefit Plan Subscriber ID Effective Phone Address Type / Group Dates CR HANKINS [id number] [address] [place] [address] PRIMARY CARE PRIMARY CARE nt [address] [place] [address] [place]. [place] [id number] [address] [address] [address] [place] [address] [place] [address] documented as of this encounter
--- OUTSIDE RECORDS SUMMARY | 2019-07-17 09:52 | XMS REPORT | Summary of Care ---
:1965 Author Organization [facility] Address [address] [place] [id number] Care Team Providers Name Role Phone Bre Richard Primary Care Provider Reason for Visit Reason Comments Follow-up COPD (Routine) Status Reason Specialty Diagnoses / Procedures Referred By Referred To Contact Contact Closed Pulmonary Disease Diagnoses Stage 1 mild COPD by GOLD classification Bre Richard FNP Procedures CONSULT/REFERRAL PULMONARY [address] [place] [address] Encounter Details Date Type Department Care Team Description 05/27/2019 Office Visit [facility] Eunice Childers DO Stage 1 mild COPD by GOLD classification (Primary Dx); Pulmonary Clinic [address] [facility] Tobacco abuse [address] [place] [address] , [address] [id number] Allergies Active Allergy Reactions Severity Noted [...] Overview: Added automatically from request for surgery [id number] Colon cancer screening 12/24/2018 Overview: Added automatically from request for surgery [id number] Family history of colon cancer 12/24/2018 Overview: Added automatically from request for surgery [id number] 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, single episode, 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 Overview: MDD recurrent ICD10 Diagnosis Term [employer] Posttraumatic stress disorder 03/16/2005 Convulsions 03/16/2005 Overview: ICD10 Diagnosis Term [employer] Seizures PTSD (post-traumatic stress disorder) Peripheral [...] Comments Blood Pressure 123/76 05/27/2019 10:10 AM HAY FARMER Pulse 76 05/27/2019 10:10 AM HAY FARMER Temperature - - Respiratory Rate 19 05/27/2019 10:10 AM HAY FARMER Oxygen Saturation 96% 05/27/2019 10:10 AM HAY FARMER Inhaled Oxygen Concentration - - Weight 70.3 kg (155 lb) 05/27/2019 10:10 AM HAY FARMER Height 154.9 cm (5' 1") 05/27/2019 10:10 AM HAY FARMER Body Mass Index 29.29 05/27/2019 10:10 AM HAY FARMER documented in this encounter Progress Notes Eunice Childers, - 05/27/2019 10:00 AM CST [facility] Interventional Pulmonology Clinic Chief Complaint: Follow up [...] of DO colonic polyps [id number] [place] [address] [phone] 06/14/2019 Surgery Surgery Gurjit Thrasher, COLONOSCOPY DO [id number] [place], [place] [address] 11/09/2019 Office Visit Cardiology Cindy Willams MD [address] [place] [address] [address] [place], [place] [id number] Health Maintenance Due Date Last Done Comments [...] Group Dates [employer] [id number] [address] [place] [address] [address] ent [address] [place] [address] General (Home) Delivery [phone] [facility] ([place]) [place] [address] documented as of this encounter
--- NOTE | 2019-07-17 10:59 | EDPHYS ---
Physician Documentation [facility] Name: Carmel Grove Age: 54 yrs Sex: Female : 1965 Arrival Date: 07/17/2019 Time: 09:48 Bed 12 Private MD: ED Physician Calvin Hou HPI: 07/16 13:16 This 54 yrs old Female presents to ER via Ambulatory with complaints of snw Cough, Sneezing. 13:16 The patient or guardian reports cough, described as mild. Onset: The symptoms/episode snw began/occurred suddenly. Severity of symptoms: in the emergency department the symptoms have improved. Associated signs and symptoms: The patient has no apparent associated signs or symptoms. It is unknown whether or not the patient has had similar symptoms in the past. The patient has not recently seen a physician. Historical: - Allergies: 10:09 No Known Allergies; bp - Home Meds: 10:09 atorvastatin Oral [Active]; Depakote Oral [Active]; Dilantin Oral [Active]; bp Hydrochlorothiazide Oral [Active]; Risperdal Oral [Active]; Trazodone Oral [Active]; Zoloft Oral [Active]; - PMHx: 10:09 PTSD; Anxiety; Depression; Hyperlipidemia; epilepsy; Edema to BLE; bp - Immunization history:: Adult Immunizations unknown. - Social history:: Smoking status: Patient reports the use of cigarette tobacco products, unknown amount. ROS: 13:15 Eyes: Negative for injury, pain, redness, and discharge, ENT: Negative for injury, snw pain, and discharge, Neck: Negative for injury, pain, and swelling, Cardiovascular: Negative for chest pain, palpitations, and edema, Respiratory: Negative for shortness of breath, wheezing, and pleuritic chest pain, + cough Abdomen/GI: Negative for abdominal pain, nausea, vomiting, diarrhea, and constipation, Back: Negative for injury and pain, : Negative for injury, bleeding, discharge, and swelling, MS/Extremity: Negative for injury and deformity, Skin: Negative for injury, rash, and discoloration, Neuro: Negative for headache, weakness, numbness, tingling, and seizure. 13:15 Constitutional: Positive for body aches, fever. Exam: 13:15 Constitutional: This is a well developed, well nourished patient who is awake, alert, snw and in no acute distress. Head/Face: Normocephalic, atraumatic. Eyes: Pupils equal round and reactive to light, extra-ocular motions intact. Lids and lashes normal. Conjunctiva and sclera are non-icteric and not injected. Cornea within normal limits. Periorbital areas with no swelling, redness, or edema. ENT: Nares patent. No nasal discharge, no septal abnormalities noted. Tympanic membranes are normal and external auditory canals are clear. Oropharynx with no redness, swelling, or masses, exudates, or evidence of obstruction, uvula midline. Mucous membranes moist. Neck: Trachea midline, no thyromegaly or masses palpated, and no cervical lymphadenopathy. Supple, full range of motion without nuchal rigidity, or vertebral point tenderness. No Meningismus. Chest/axilla: Normal chest wall appearance and motion. Nontender with no deformity. No lesions are appreciated. Cardiovascular: Regular rate and rhythm with a normal S1 and S2. No gallops, murmurs, or rubs. Normal PMI, no JVD. No pulse deficits. Respiratory: Lungs have equal breath sounds bilaterally, clear to auscultation and percussion. No rales, rhonchi or wheezes noted. No increased work of breathing, no retractions or nasal flaring. Abdomen/GI: Soft, non-tender, with normal bowel sounds. No distension or tympany. No guarding or rebound. No evidence of tenderness throughout. Back: No spinal tenderness. No costovertebral tenderness. Full range of motion. Skin: Warm, dry with normal turgor. Normal color with no rashes, no lesions, and no evidence of cellulitis. MS/ Extremity: Pulses equal, no cyanosis. Neurovascular intact. Full, normal range of motion. Neuro: Awake and alert, GCS 15, oriented to person, place, time, and situation. Cranial nerves II-XII grossly intact. Motor strength 5/5 in all extremities. Sensory grossly intact. Cerebellar exam normal. Normal gait. Psych: Awake, alert, with orientation to person, place and time. Behavior, mood, and affect are within normal limits. Vital Signs: 10:05 BP 126 / 76; Pulse 79; Resp 17; Temp 98.5; Pulse Ox 97% ; Weight 70.31 kg; Height 5 ft. bp 1 in. (154.94 cm); 11:05 BP 121 / 71; Pulse 81; Resp 16; Temp 98.5; Pulse Ox 97% ; bp 10:05 Body Mass Index 29.29 (70.31 kg, 154.94 cm) bp MDM: 10:18 Patient medically screened. snw 13:15 Data reviewed: vital signs, nurses notes. Data interpreted: Pulse oximetry: on room air snw is 97 %. Interpretation: normal. Counseling: I had a detailed discussion with the patient and/or guardian regarding: the historical points, exam findings, and any diagnostic results supporting the discharge/admit diagnosis, the need for outpatient follow up. Special discussion: Based on the history and exam findings, there is no indication for further emergent testing or inpatient evaluation. I discussed with the patient/guardian the need to see the primary care provider for further evaluation of the symptoms. Administered Medications: No medications were administered Disposition: 10:37 Upper respiratory infection. snw 13:45 Co-signature as Attending Physician, Calvin Hou MD I agree with the assessment and kdr plan of care. Disposition: 07/17/19 10:58 Discharged to Home. Impression: Encounter for screening, unspecified. - Condition is Stable. - Discharge Instructions: Upper Respiratory Infection, Adult. - Medication Reconciliation Form, Thank You Letter, Antibiotic Education, Prescription Opioid Use form. - Follow up: Private Physician; When: 2 - 3 days; Reason: Recheck today's complaints, Continuance of care, Re-evaluation by your physician. Follow up: Emergency Department; When: As needed; Reason: Worsening of condition. Signatures: Calvin Hou MD MD [facility] Suzette Garcia, OVERHEAD LINE WORKER-C OVERHEAD LINE WORKER-Csnw Moe Kevin, BRANDT RN bp Corrections: (The following items were deleted from the chart) 11:11 10:58 07/17/2019 10:58 Discharged to Home. Impression: Encounter for screening, bp unspecified. Condition is Stable. Discharge Instructions: Upper Respiratory Infection, Adult. Forms are Medication Reconciliation Form, Thank You Letter, Antibiotic Education, Prescription Opioid Use. Follow up: Private Physician; When: 2 - 3 days; Reason: Recheck today's complaints, Continuance of care, Re-evaluation by your physician. Follow up: Emergency Department; When: As needed; Reason: Worsening of condition. snw
--- NOTE | 2019-07-17 10:59 | ER ---
Nurse's Notes [facility] Name: Carmel Grove Age: 54 yrs Sex: Female : 1965 Arrival Date: 07/17/2019 Time: 09:48 Bed 12 Private MD: Diagnosis: Encounter for screening, unspecified Presentation: 07/16 10:05 Chief complaint: Patient states: I GOT A FEVER. Coronavirus screen: Patient denies bp fever greater than 100.4F, cough, shortness of breath, or difficulty breathing. Proceed with normal triage process. Ebola Screen: No symptoms or risks identified at this time. Onset: The symptoms/episode began/occurred at an unknown time. Anaphylaxis evaluation, no signs or symptoms of anaphylaxis were noted. Initial Sepsis Screen: Does the patient meet any 2 criteria? No. Patient's initial sepsis screen is negative. Does the patient have a suspected source of infection? No. Patient's initial sepsis screen is negative. Risk Assessment: Do you want to hurt yourself or someone else? Patient reports no desire to harm self or others. 10:05 Method Of Arrival: Ambulatory bp 10:05 Acuity: NICHOLE 5 bp Triage Assessment: 10:05 General: Appears in no apparent distress. comfortable, Behavior is cooperative, bp appropriate for age, anxious. Pain: Denies pain. EENT: No deficits noted. Neuro: No deficits noted. Cardiovascular: No deficits noted. Respiratory: Airway is patent NO COUGH NOTED DURING TRIAGE. GI: No signs and/or symptoms were reported involving the gastrointestinal system. : No signs and/or symptoms were reported regarding the genitourinary system. Derm: No deficits noted. Musculoskeletal: No deficits noted. Historical: - Allergies: 10:09 No Known Allergies; bp - Home Meds: 10:09 atorvastatin Oral [Active]; Depakote Oral [Active]; Dilantin Oral [Active]; bp Hydrochlorothiazide Oral [Active]; Risperdal Oral [Active]; Trazodone Oral [Active]; Zoloft Oral [Active]; - PMHx: 10:09 PTSD; Anxiety; Depression; Hyperlipidemia; epilepsy; Edema to BLE; bp - Immunization history:: Adult Immunizations unknown. - Social history:: Smoking status: Patient reports the use of cigarette tobacco products, unknown amount. Screenin:05 Abuse screen: Denies threats or abuse. Denies injuries from another. Nutritional bp screening: No deficits noted. Tuberculosis screening: No symptoms or risk factors identified. Fall Risk None identified. Assessment: 10:05 General: SEE TRIAGE NOTE. bp 11:05 Reassessment: PT D/C HOME AMBULATORY WITH FAMILY, DX WITH SCREENING ENCOUNTER. bp Respiratory: Airway is patent Respiratory effort is even, unlabored, Breath sounds are clear bilaterally. Vital Signs: 10:05 BP 126 / 76; Pulse 79; Resp 17; Temp 98.5; Pulse Ox 97% ; Weight 70.31 kg; Height 5 ft. bp 1 in. (154.94 cm); 11:05 BP 121 / 71; Pulse 81; Resp 16; Temp 98.5; Pulse Ox 97% ; bp 10:05 Body Mass Index 29.29 (70.31 kg, 154.94 cm) bp ED Course: 09:48 Patient arrived in ED. ag5 10:04 Moe Kevin, RN is Primary Nurse. bp 10:05 Arm band placed on. bp 10:05 Patient has correct armband on for positive identification. Bed in low position. Call bp light in reach. Side rails up X2. 10:07 Triage completed. bp 10:11 Suzette Garcia FNP-C is PHCP. snw 10:11 Calvin Hou MD is Attending Physician. snw 11:05 No provider procedures requiring assistance completed. Patient did not have IV access bp during this emergency room visit. Administered Medications: No medications were administered Outcome: 10:58 Discharge ordered by . snw 11:05 Discharged to home ambulatory, with family. bp 11:05 Condition: stable 11:05 Discharge instructions given to patient, Instructed on discharge instructions, follow up and referral plans. Demonstrated understanding of instructions, follow-up care. 11:11 Patient left the ED. bp Signatures: Suzette Garcia FNP-C HOME STEREO EQUIPMENT INSTALLER-Csnw Moe Kevin, RN RN bp Gianni Van ag5 Corrections: (The following items were deleted from the chart) 10:09 10:05 Acuity: NICHOLE 4 bp bp
== END 2019-07-17 11:11 | disposition home or self-care (01) ==
CPT/HCPCS: 99281

== ENCOUNTER 2019-08-07 06:33 | Emergency (ER) | payer SELFPAY ==
--- OUTSIDE RECORDS SUMMARY | 2019-08-07 06:39 | XMS REPORT ---
:1965 Author Organization [facility] t Address [facility] [place] [address] [place] [id number] Care Team Providers Name Role Phone Unavailable Unavailable Unavailable Problems This patient has no known problems. Allergies, Adverse Reactions, Alerts This patient has no known allergies or adverse reactions. Medications This patient has no known medications.
[2019-08-07] MEDS ORDERED: FENTANYL CITR 100 MCG/2 ML ONE (06:55)
[2019-08-07] MEDS ORDERED: ASPIRIN 81 MG CHEWABLE TABLET ONE (06:55)
[2019-08-07 07:21] LABS: Absolute Lymphocytes (CBC) 2.2 K/uL (0.7-4.9); Basophils % 1.1 % (0-1.3); Hematocrit 41.4 % (36.0-45.0); Lymphocytes % 34.5 % (15.3-44.8); MPV 8.7 fL (7.6-11.3); RBC Red Blood Cell Count 4.61 M/uL (3.86-4.86)
[2019-08-07 07:25] LABS: Protime INR 0.92
[2019-08-07 07:38] LABS: ALT/SGPT 15 U/L (12-78); AST/SGOT 6 U/L (15-37); Albumin 3.3 g/dL (3.4-5.0); Alkaline Phosphatase 62 U/L (45-117); BUN Blood Urea Nitrogen 6 mg/dL (7-18); Bicarbonate 24 mmol/L (21-32); Bilirubin Direct 0.1 mg/dL (0-0.2); Bilirubin Total 0.2 mg/dL (0.2-1.0); Glucose Level 84 mg/dL (74-106); NT PRO-BNP 140 pg/mL (<125); Potassium 4.4 mmol/L (3.5-5.1); Protein, Total 6.8 g/dL (6.4-8.2); Sodium Level 137 mmol/L (136-145); Troponin (Emerg Dept Use Only) < 0.02 ng/mL (0.0-0.045)
--- NOTE | 2019-08-07 07:42 | RAD REPORT ---
EXAM DESCRIPTION: CT - Head Brain Wo Cont - 08/07/2019 7:23 am CLINICAL HISTORY: DIZZINESS, recent fall with head injury, seizure history COMPARISON: No comparisons TECHNIQUE: Axial 5 mm thick images of the head were obtained without IV contrast. All CT scans are performed using dose optimization technique as appropriate and may include automated exposure control or mA/KV adjustment according to patient size. FINDINGS: No intracranial hemorrhage, mass, edema or shift of mid-line structures. No acute infarcti on changes seen. No abnormal extra-axial fluid collections. Ventricles are normal. Mastoid air cells and visualized portions of the paranasal sinuses are clear. No acute bony findings. IMPRESSION: Negative non-contrast CT head examination.
--- NOTE | 2019-08-07 08:08 | RAD REPORT ---
EXAM DESCRIPTION: RAD - Chest Single View - 08/07/2019 7:27 am CLINICAL HISTORY: CHEST PAIN, fall with chest trauma 2 weeks earlier COMPARISON: Two-view chest exam March 2019 TECHNIQUE: AP portable chest image was obtained 08/07/2019 7:27 am . FINDINGS: No pulmonary contusion, consolidation or focal lung parenchymal process. Patient has a dif fusely prominent interstitial pattern throughout both lung daley. This is not substantially differen t from the comparison study. Severity of the chronic disease could mask early interstitial edema or i nfiltrate. Heart and vasculature are normal. No measurable pleural effusion and no pneumothorax. No a cute bone finding evident. Rib detail is limited on portable imaging. Degenerative changes are presen t at the left shoulder joint. Appearance of the left humeral head suggests remodeling from prior frac ture. No acute aortic findings suspected. IMPRESSION: Chronic interstitial lung disease similar to comparison. This could potentially mask ear liest stages of interstitial edema or infiltrate. No acute or subacute traumatic injury to the chest identifiable.
[2019-08-07] MEDS ORDERED: MECLIZINE HCL 12.5 MG TAB ONE (08:27)
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
[2019-08-07 09:03] VITALS: TEMP 98.8
[2019-08-07 09:14] VITALS: BP 138/72; O2SAT 98
--- NOTE | 2019-08-09 07:24 | EKG ---
Test Date: 2019-08-07 Test Time: 06:54:29 Supervisor Wound: GLORIA MEASUREMENT RESULTS: Intervals: Rate: 70 WA: 156 QRSD: 78 QT: 396 QTc: 427 [place]: P: 70 WA: 156 QRS: 10 T: 20 INTERPRETIVE STATEMENTS: Normal sinus rhythm Normal ECG No previous ECG available for comparison Electronically Signed On 08-09-19 07:22:16 CDT by Andrea Barrow
== END 2019-08-07 08:50 | disposition home or self-care (01) ==
LOC: ER 06:33
DX: R07.89 Other chest pain (principal); R42 Dizziness and giddiness; Z91.81 History of falling; F41.9 Anxiety disorder, unspecified; F32.9 Major depressive disorder, single episode, unspecified; E78.5 Hyperlipidemia, unspecified; F43.10 Post-traumatic stress disorder, unspecified; G40.909 Epilepsy, unspecified, not intractable, without status epilepticus; F17.210 Nicotine dependence, cigarettes, uncomplicated; Z79.899 Other long term (current) drug therapy; Z85.89 Personal history of malignant neoplasm of other organs and systems
CPT/HCPCS: 36415; 70450; 71045; 80048; 80076; 83735; 83880; 84484; 85025; 85379; 85610; 93005; 96374; 99284; J3010; J8597